=== PATIENT | male | born 1970 | race Caucasian/White ===

== ENCOUNTER 2022-07-23 12:03 | Emergency (ER) | payer OTHER, SELFPAY ==
[2022-07-23 12:07] VITALS: BP 174/77; PULSE 88; RESP 16; TEMP 36.6; O2SAT 99; BMI 35.4
--- NOTE | 2022-07-23 12:29 | CTR_ITS ---
PROCEDURE INFORMATION: Exam: CT Head Without Contrast Exam date and time: 07/23/2022 12:54 PM Age: 51 years old Clinical indication: Weakness, extremity; Right; Additional info: Right arm weakness TECHNIQUE: Imaging protocol: Computed tomography of the head without contrast. Radiation optimization: All CT scans at this facility use at least one of these dose optimization techniques: automated exposure control; mA and/or kV adjustment per patient size (includes targeted exams where dose is matched to clinical indication); or iterative reconstruction. COMPARISON: No relevant prior studies available. RADIATION DOSE METRICS: Total DLP (mGy-cm): 249.2 FINDINGS: Brain: Normal. No hemorrhage. Unremarkable white matter. No mass effect. Cerebral ventricles: No ventriculomegaly. Paranasal sinuses: Visualized sinuses are unremarkable. No fluid levels. Mastoid air cells: Visualized mastoid air cells are well aerated. Bones/joints: Unremarkable. No acute fracture. Soft tissues: Unremarkable. CT/CT head wo con* [id number] IMPRESSION: No acute intracranial abnormality.
--- NOTE | 2022-07-23 12:29 | CTR_ITS ---
PROCEDURE INFORMATION: Exam: CT Cervical Spine Without Contrast Exam date and time: 07/23/2022 12:54 PM Age: 51 years old Clinical indication: Other: Right arm pain, numbness; Additional info: Right arm pain, numbness and weakness TECHNIQUE: Imaging protocol: Computed tomography of the cervical spine without contrast. Radiation optimization: All CT scans at this facility use at least one of these dose optimization techniques: automated exposure control; mA and/or kV adjustment per patient size (includes targeted exams where dose is matched to clinical indication); or iterative reconstruction. COMPARISON: MR shoulder LT wo con* [id number] 04/17/2016 1:52 PM RADIATION DOSE METRICS: Total DLP (mGy-cm): 249.2 FINDINGS: Bones/joints: No acute fracture. Normal alignment. No significant disc protrusion. No severe spinal canal stenosis. There is mild degenerative changes, manifested by intervertebral disc space narrowing, endplate osteophytes and facet joint arthrosis. Lungs: Lung apices are normal. Soft tissues: Unremarkable. CT/CT cervical spin wo con* [id number] IMPRESSION: No acute findings.
--- NOTE | 2022-07-23 12:29 | XRR_ITS ---
PROCEDURE INFORMATION: Exam: XR Right Shoulder Exam date and time: 07/23/2022 12:51 PM Age: 51 years old Clinical indication: Pain; Shoulder; Right; Additional info: Right shoulder pain TECHNIQUE: Imaging protocol: Radiologic exam of the Right shoulder. Views: 2 or more views. COMPARISON: No relevant prior studies available. FINDINGS: Bones/joints: No acute fracture or dislocation. There is deficiency/absence of the distal/lateral right clavicle, which may be postoperative in nature. Soft tissues: Normal. XR/XR shoulder RT min 2V* [id number] IMPRESSION: 1. No acute injury. 2. Deficiency/absence of the distal/lateral right clavicle, which may be postoperative in nature. Clinical correlation is recommended.
--- NOTE | 2022-07-23 12:29 | W.ED.NECK ---
HPI - Neck Pain/Injury General: Chief Complaint: Neck Pain/Injury Stated Complaint: right shoulder is in pain Time Seen by Provider: 07/23/22 12:23 History of Present Illness: Patient is a 51-year-old male comes to the ED with right arm weakness and pain. Patient says symptoms started approximately 4 days ago when he developed an aching pain in his right upper arm and shoulder. Pain then progressed up into right upper back and into neck. Pain is currently a 9 out of 10. Pain radiates down into his whole right arm. He is also on having some numbness/tingling in his right hand. Numbness and tingling is located on fourth and fifth digits of the right hand. Endorses weakness in his right arm. Denies any headache, vision changes, numbness or tingling to other part of his body or face or any weakness to face. Associated symptoms: Denies headache(s) or nausea Review of Systems Const: Denies: fever(s), chills or fatigue Eyes: Denies: change in vision or eye discomfort ENMT: Denies: throat pain, odynophagia, nasal discharge or nasal congestion Card: Denies: chest pain, palpitations, edema, swelling of feet/ankles, dyspnea on exertion or orthopnea Resp: Denies: dyspnea, productive cough or non-productive cough GI: Denies: abdominal pain, nausea, vomiting, diarrhea, constipation or hematochezia : Denies: flank pain, difficulty urinating, dysuria or hematuria Musc: Reports: neck pain and extremity pain (Right arm and right shoulder); Denies: back pain or extremity swelling Skin/Breast: Denies: rash or new lesions Neuro: Reports: numbness in extremities (Right hand) and weakness in extremities (Right arm); Denies: headache(s) [facility] ED PFSH: Medical History No pertinent family history Surgical History History of shoulder surgery BILATERAL Family History Mother Hypertension Social History Smoking and tobacco status: former smoker Alcohol intake: never Caregiver/support person: No Lives independently: No Household members: spouse Marital status: Current occupational status: employed History of recent travel: No Current gender identity: Male Physical Exam Const: COMMON NORMALS: no acute distress, patient oriented x3, healthy appearing and alert GENERAL APPEARANCE: cooperative and comfortable HENMT: COMMON NORMALS: normocephalic HEAD & SCALP: normocephalic MOUTH: Normal oral and palatal mucosa present THROAT: posterior oropharynx normal and uvula midline Eye: COMMON NORMALS: Equal, round and reactive pupils present and EOMs intact bilaterally GENERAL EYE: appearance normal, both eyes and all related structures PUPIL: Yes Equal, round and reactive pupils present Neck/C-Spine: COMMON NORMALS: supple GENERAL: Yes normal visual inspection Lymph: LYMPHATIC: no lymphadenopathy noted Resp: COMMON NORMALS: normal respiratory effort, No retractions, No use of accessory muscles and clear to auscultation bilaterally AUSCULTATION: clear to auscultation bilaterally Cardio: COMMON NORMALS: regular rate, regular rhythm, S1 normal heart sound present, S2 normal heart sound present, No gallops present (Cardio), No clicks present (Cardio), No murmurs present (Cardio) and Peripheral pulses 2+ throughout RATE: regular rate RHYTHM: regular rhythm HEART SOUNDS: S1 normal heart sound present and S2 normal heart sound present PERIPHERAL PULSES: Peripheral pulses 2+ throughout GI: COMMON NORMALS: Normal to inspection, nondistended, normoactive bowel sounds present, Soft to palpation, non-tender and no masses PALPATION: Yes Soft to palpation : COMMON NORMALS: Yes no CVA tenderness BLADDER/KIDNEY EXAM: Yes no CVA tenderness Back/Pelvis: COMMON NORMALS: no CVA tenderness Extremity: GENERAL: Yes normal exam except as noted RIGHT UPPER EXTREMITY: Yes wrist Right wrist: Yes special tests Right wrist special tests: Phalen's test: Positive Neuro: COMMON NORMALS: patient oriented x3, CN's II-XII intact bilaterally, moves all extremities, no focal motor deficits and no sensory deficits noted SENSORIUM/ORIENTATION: Yes alert SENSORY EXAM: Yes extremities (intact) MOTOR EXAM: 5/5 motor strength present throughout Skin: COMMON NORMALS: no rashes or lesions noted GENERAL SKIN EXAM: no rashes or lesions noted and dry skin Course Vital Signs: Vital signs: Vital Signs Temperature 97.9 F 07/23/22 12:07 Pulse Rate 88 07/23/22 12:07 Respiratory Rate 16 07/23/22 12:44 Blood Pressure 174/77 07/23/22 12:07 Pulse Oximetry 99 07/23/22 12:07 MDM - Neck Pain/Injury Medical Decision Making Patient is a 51-year-old male comes to the ED with right arm weakness and pain. Patient says symptoms started approximately 4 days ago when he developed an aching pain in his right upper arm and shoulder. Pain then progressed up into right upper back and into neck. Pain is currently a 9 out of 10. Pain radiates down into his whole right arm. He is also on having some numbness/tingling in his right hand-fourth and fifth digit. Vitals are stable. Neuro exam shows no deficits. Patient did have a positive Phalen's test of the right wrist suggestive of carpal tunnel syndrome. Rest of exam was benign. CT of cervical spine and head CT showed no acute findings. 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 Patient was diagnosed with right shoulder pain and acute carpal tunnel syndrome of right wrist. I placed an order with case management for patient to be referred to Ortho?Dr. Gifford since he is seen her in the past. Patient discharged home with a sling, prescription for ibuprofen 800 mg since steroids. Told to follow-up with PCP within the next week for reevaluation. Return to ED precautions given. Patient understood and agreed with plan. Lab Data Radiology Impressions Cervical Spine CT 07/23/22 12:29 IMPRESSION: No acute findings. Head CT 07/23/22 12:29 IMPRESSION: No acute intracranial abnormality. Shoulder X-Ray 07/23/22 12:29 IMPRESSION: 1. No acute injury. 2. Deficiency/absence of the distal/lateral right clavicle, which may be postoperative in nature. Clinical correlation is recommended. Discharge Plan Discharge Patient Disposition: Home Clinical Impression: Acute carpal tunnel syndrome of right wrist Pain in right shoulder Qualifiers: Chronicity: acute Qualified Code(s): M25.511 - Pain in right shoulder Condition: Stable Prescriptions: New ibuprofen 800 mg tablet 800 mg PO Q8H PRN (Reason: pain) Qty: 30 0RF prednisone 20 mg tablet 20 mg PO BID 5 Days Qty: 10 0RF Discharge Orders: Discharge ED (Routine); Ordered 07/23/22 Ordered By: Cecil Spencer Discharge Diet: Regular Discharge Activity: Increase activity as tolerated Patient Instructions: Carpal Tunnel Syndrome (DC), Shoulder Pain (ED) Activity Restrictions/Additional Instructions: Follow-up with medical provider as directed. Case management should contact you in the next several days set up an appointment with Ortho for follow-up on carpal tunnel and right shoulder pain. Take medications as prescribed. Return to the ER or your medical provider if condition worsens. Please read and understand discharge instructions. Thank you for choosing [facility] for your healthcare needs today. Please realize this is an emergency room and that we are providing you with a medical screening exam and this may not be complete and all inclusive of all the testing and or work up that you may need to determine your ailment or severity of your illness. It is very important that you follow up as instructed or that you return to the Emergency Department should you have concerns or if your condition changes or worsens in any way. Stand Alone Forms: Work/School Release Coding Level of Care Code ED Claim Attorney for [employer] Exam Comprehensive
[2022-07-23 12:44] VITALS: RESP 16
[2022-07-23] MEDS: morphine 4 mg/mL SDV 1 mL IM (12:44)
--- NOTE | 2022-07-23 14:21 | DCPLANNER ---
Addendum entered by Vanessa Saha 10/08/22 11:08: Patient had a follow up appointment scheduled with ortho - patient did attend appointment Addendum entered by Vanessa Saha 07/25/22 13:09: Patient has a follow up appointment scheduled for Thursday, July 30, 2022 at 8:[address] Gifford at ortho. Clinic will call patient with appointment information. Original Note: transitional care manager had message to schedule a follow up appointment for patient with ortho. transitional care manager sent patients information to the front office staff at ortho. Patients information will be printed and reviewed. Clinic will call patient with appointment information.
== END 2022-07-23 14:17 | disposition home or self-care (01) ==
PROVIDERS: Emergency Provider Physician Assistant
DX: M25.511 Pain in right shoulder (principal); G56.01 Carpal tunnel syndrome, right upper limb; Z87.891 Personal history of nicotine dependence
CPT/HCPCS: 70450; 72125; 73030; 96372; 99284; J2270

== ENCOUNTER 2022-07-29 12:30 | Inpatient (IN) | payer OTHER, SELFPAY ==
[2022-07-29] VITALS (76 sets, daily range): BP systolic 118–159; BP diastolic 60–99; PULSE 62–97; RESP 9–28; TEMP 36.8–37; O2SAT 95–99; BMI 36.5
[2022-07-29 12:55] LABS: Glucose Point of Care > 600 mg/dL (70-110)
--- NOTE | 2022-07-29 13:06 | W.ED.GENADLT ---
Documented by User: JENNIFER Guardado 07/29/22 15:58 HPI - General Adult General: Chief complaint: General Medical Stated complaint: Full body tingles, vision problems, stumbling Time Seen by Provider: 07/29/22 12:45 History of Present Illness: Patient is a 51-year-old male comes to the ED with multiple complaints. Today he woke up feeling lightheaded, blurry vision and off-balance. He states he has been stumbling/off balance when walking around today. Patient also endorses feeling some tingling sensation all throughout his body. Approximately 2 to 3 days ago he started having dry mouth excessive thirst and increased urination. Patient states that he has been told before that he was a prediabetic but is not on any diabetic medications or insulin. Patient was recently on a course of steroids that he just finished taking yesterday. Denies any fever, chills, abdominal pain, chest pain, shortness of breath, nausea/vomiting or bowel symptoms. Associated symptoms: Deny chest pain, dyspnea, headache(s), nausea, rash, palpitations or vomiting Review of Systems Const: Denies: fever(s), chills or fatigue Eyes: Reports: blurry vision; Denies: change in vision or eye discomfort ENMT: Denies: throat pain, odynophagia, nasal discharge or nasal congestion Card: Denies: chest pain, palpitations, edema, swelling of feet/ankles, dyspnea on exertion or orthopnea Resp: Denies: dyspnea, productive cough or non-productive cough GI: Denies: abdominal pain, nausea, vomiting, diarrhea, constipation or hematochezia : Reports: urinary frequency (Increased); Denies: flank pain, difficulty urinating, dysuria or hematuria Musc: Denies: neck pain, back pain or extremity swelling Skin/Breast: Denies: rash or new lesions Neuro: Denies: headache(s), numbness in extremities or weakness in extremities Endo: Reports: polyuria and polydipsia PFS ED PFSH: Medical History No pertinent family history Surgical History History of shoulder surgery BILATERAL Family History Mother Hypertension Social History Smoking and tobacco status: former smoker Alcohol intake: never Caregiver/support person: No Lives independently: No Household members: spouse Marital status: Current occupational status: employed History of recent travel: No Current gender identity: Male Physical Exam Const: COMMON NORMALS: patient oriented x3 and alert GENERAL APPEARANCE: cooperative HENMT: COMMON NORMALS: normocephalic HEAD & SCALP: normocephalic MOUTH: Normal oral and palatal mucosa present THROAT: posterior oropharynx normal and uvula midline Eye: COMMON NORMALS: Equal, round and reactive pupils present and conjunctivae normal CONJUNCTIVA: Yes conjunctivae normal PUPIL: Yes Equal, round and reactive pupils present Neck/C-Spine: COMMON NORMALS: supple GENERAL: Yes normal visual inspection Resp: COMMON NORMALS: normal respiratory effort, No retractions, No use of accessory muscles and clear to auscultation bilaterally AUSCULTATION: clear to auscultation bilaterally Cardio: COMMON NORMALS: regular rate, regular rhythm, S1 normal heart sound present, S2 normal heart sound present, No gallops present (Cardio), No clicks present (Cardio), No murmurs present (Cardio) and Peripheral pulses 2+ throughout RATE: regular rate RHYTHM: regular rhythm HEART SOUNDS: S1 normal heart sound present and S2 normal heart sound present PERIPHERAL PULSES: Peripheral pulses 2+ throughout GI: COMMON NORMALS: Normal to inspection, nondistended, normoactive bowel sounds present, Soft to palpation, non-tender and no masses PALPATION: Yes Soft to palpation : COMMON NORMALS: Yes no CVA tenderness BLADDER/KIDNEY EXAM: Yes no CVA tenderness Back/Pelvis: COMMON NORMALS: no CVA tenderness Extremity: COMMON NORMALS: normal to inspection Neuro: COMMON NORMALS: patient oriented x3 SENSORIUM/ORIENTATION: Yes alert GAIT: Yes Normal gait present Skin: GENERAL SKIN EXAM: dry skin Course Vital Signs: Vital signs: Vital Signs Temperature 98.2 F 07/29/22 12:33 Pulse Rate 77 07/29/22 14:41 Respiratory Rate 18 07/29/22 14:41 Blood Pressure 144/77 07/29/22 14:41 Pulse Oximetry 98 07/29/22 14:41 Oxygen Delivery Me thod 07/29/22 14:41 [facility] - General Adult Lab Data : 07/29/22 13:15 07/29/22 13:15 Radiology Impressions Chest X-Ray 07/29/22 13:12 IMPRESSION: No acute finding. Laboratory Results WBC 11.3 10^3/uL (4.0-10.0) H 07/29/22 13:15 RBC 5.39 10^6/uL (4.1-5.3) H 07/29/22 13:15 Hgb 16.3 g/dL (11.7-16.6) 07/29/22 13:15 Hct 47.8 % (42.0-52.0) 07/29/22 13:15 MCV 88.7 fl (80-94) 07/29/22 13:15 MCH 30.2 pg (28.0-34.0) 07/29/22 13:15 MCHC 34.1 g/dL (30.0-36.0) 07/29/22 13:15 RDW 11.8 % (12.1-15.1) L 07/29/22 13:15 Plt Count 289 10^3/cmm (130-400) 07/29/22 13:15 MPV 11.2 fL (7.4-10.4) H 07/29/22 13:15 Neut % (Auto) 69.3 % 07/29/22 13:15 Lymph % (Auto) 23.2 % 07/29/22 13:15 [place] % (Auto) 6.5 % 07/29/22 13:15 Eos % (Auto) 0.3 % 07/29/22 13:15 Baso % (Auto) 0.3 % 07/29/22 13:15 Neut # (Auto) 7.86 10^3/uL (1.8-7.7) H 07/29/22 13:15 Lymph # (Auto) 2.6 10^3/uL (0.8-4.8) 07/29/22 13:15 [place] # (Auto) 0.7 10^3/uL (0.2-0.9) 07/29/22 13:15 Eos # (Auto) 0.0 10^3/uL (0.0-0.8) 07/29/22 13:15 Baso # (Auto) 0.0 10^3/uL (0.0-0.1) 07/29/22 13:15 Nucleated RBC % (auto) 0 % 07/29/22 13:15 Nucleated RBCs # 0.0 /100WBC 07/29/22 13:15 Specimen Type Arterial 07/29/22 13:28 Sample Site Radial, left 07/29/22 13:28 ABG pH 7.39 (7.35-7.45) 07/29/22 13:28 ABG pCO2 28.1 mmHg (35-45) L 07/29/22 13:28 ABG pO2 85.3 mmHg (80.0-100.0) 07/29/22 13:28 ABG HCO3 16.9 mmol/L (22-26) L 07/29/22 13:28 ABG O2 Saturation 97.5 07/29/22 13:28 ABG Base Excess -6.3 mmol/L (-2.0-2.0) L 07/29/22 13:28 Ian Test Pos 07/29/22 13:28 A-a O2 Gradient 3.8 mmHg (5-10) L 07/29/22 13:28 Hematocrit 49.9 % (42-52) 07/29/22 13:28 Hgb O2 Saturation 95.9 % (95-100) 07/29/22 13:28 Carboxyhemoglobin 1.4 %THgb (0.4-20.1) 07/29/22 13:28 Methemoglobin 0.2 % (0.4-1.5) L 07/29/22 13:28 Total Hemoglobin 16.3 g/dL (14-18) 07/29/22 13:28 Sodium 124.0 mmol/L (131-143) L 07/29/22 13:28 Potassium 4.0 mmol/L (3.5-5.0) 07/29/22 13:28 Glucose 605.0 mg/dL (70-115) H 07/29/22 13:28 Ionized Calcium 1.1 mmol/L (1.1-1.4) 07/29/22 13:28 O2 Delivery Device Room air 07/29/22 13:28 FiO2 21.0 % 07/29/22 13:28 Hand Salter ID Cak 07/29/22 13:28 Sodium 120 mmol/L (136-145) L 07/29/22 13:15 Potassium 4.4 mmol/L (3.5-5.1) 07/29/22 13:15 Chloride 79 mmol/L (98-107) L 07/29/22 13:15 Carbon Dioxide 19 mmol/L (22-29) L 07/29/22 13:15 Anion Gap 26.4 (5-19) H 07/29/22 13:15 BUN 34 mg/dL (6-20) H 07/29/22 13:15 Creatinine 1.4 mg/dL (0.7-1.2) H 07/29/22 13:15 GFR Calculation 53.9 mL/min (90-130) L 07/29/22 13:15 Glucose 645 mg/dL (65-115) H* 07/29/22 13:15 POC Glucose > 600 mg/dL (70-110) H* 07/29/22 14:26 Calculated Osmolality 288 mOsm/kg (285-295) 07/29/22 13:15 Lactic Acid 2.1 mmol/L (0.5-2.2) 07/29/22 13:15 Calcium 8.9 mg/dL (8.5-10.5) 07/29/22 13:15 Total Bilirubin 0.8 mg/dL (0.15-1.2) 07/29/22 13:15 AST 40 U/L (0-40) 07/29/22 13:15 ALT 54 U/L (0-41) H 07/29/22 13:15 Alkaline Phosphatase 106 U/L (40-130) 07/29/22 13:15 Total Protein 7.6 g/dL (6.6-8.7) 07/29/22 13:15 Albumin 4.4 g/dL (3.5-5.2) 07/29/22 13:15 Globulin 3.2 g/dL (1.3-4.6) 07/29/22 13:15 Urine Color Yellow (Yellow) 07/29/22 13:15 Urine Appearance Clear (CLEAR) 07/29/22 13:15 Urine pH 5 (5-7) 07/29/22 13:[address] 1.010 (1.005-1.030) 07/29/22 13:15 Urine Protein Neg (Negative) 07/29/22 13:15 Urine Glucose (UA) 4+ (Normal) H 07/29/22 13:15 Urine Ketones 2+ (Negative) H 07/29/22 13:15 Urine Blood 2+ (Negative) H 07/29/22 13:15 Urine Nitrate Negative (Negative) 07/29/22 13:15 Urine Bilirubin Neg (Negative) 07/29/22 13:15 Urine Urobilinogen Norm mg/dL (Negative) 07/29/22 13:15 Ur Leukocyte Esterase Negative (Negative) 07/29/22 13:15 Urine RBC 0-4 /hpf (0-2) H 07/29/22 13:15 Urine WBC 0-4 /hpf (0-5) H 07/29/22 13:15 Ur Squamous Epith Cells 0-4 /hpf (0-5) H 07/29/22 13:15 Amorphous Sediment Not Reportable 07/29/22 13:15 Urine Bacteria Trace /hpf (NONE) 07/29/22 13:15 Urine Yeast Trace /hpf 07/29/22 13:15 Serum Ketones Positive (Negative) H 07/29/22 13:15 Discharge Plan Discharge Patient Disposition: Admitted As Inpatient Clinical Impression: DKA (diabetic ketoacidosis) Condition: Stable Sign Out Sign Out Data: Patient Sign Out occurred on 07/29/22 at 14:34. Patient's care was discussed, and care was transferred from to Patrice Cuellar DO. Coding Level of Care Code ED Field Artillery Operations Man for Chg Fwd Exam Comprehensive Documented by User: Patrice Cuellar DO 07/29/22 15:48 HPI - General Adult General: Chief complaint: General Medical Stated complaint: Full body tingles, vision problems, stumbling Time Seen by Provider: 07/29/22 12:45 PFSH ED PFSH: Medical History No pertinent family history Surgical History History of shoulder surgery BILATERAL Family History Mother Hypertension Social History Smoking and tobacco status: former smoker Alcohol intake: never Caregiver/support person: No Lives independently: No Household members: spouse Marital status: Current occupational status: employed History of recent travel: No Current gender identity: Male Course Vital Signs: Vital signs: Vital Signs Temperature 98.2 F 07/29/22 12:33 Pulse Rate 77 07/29/22 14:41 Respiratory Rate 18 07/29/22 14:41 Blood Pressure 144/77 07/29/22 14:41 Pulse Oximetry 98 07/29/22 14:41 Oxygen Delivery Me thod 07/29/22 14:41 MDM - General Adult Medical Decision Making Care assumed from midlevel. Patient is in DKA. He had been known to have impaired glucose tolerance was recently started on prednisone for an orthopedic complaint. He has not been able to eat or drink the last few days has had polyuria polydipsia. Presents here with ketones glucose greater than 600 normal pH but a significant anion gap will admit for early DKA has been given fluids potassium supplement is started he was given initial insulin bolus and started on insulin drip. Medical Records I reviewed the patient's medical records. Lab Data I reviewed the patient's lab results. : 07/29/22 13:15 07/29/22 13:15 Radiology Impressions Chest X-Ray 07/29/22 13:12 IMPRESSION: No acute finding. Laboratory Results WBC 11.3 10^3/uL (4.0-10.0) H 07/29/22 13:15 RBC 5.39 10^6/uL (4.1-5.3) H 07/29/22 13:15 Hgb 16.3 g/dL (11.7-16.6) 07/29/22 13:15 Hct 47.8 % (42.0-52.0) 07/29/22 13:15 MCV 88.7 fl (80-94) 07/29/22 13:15 MCH 30.2 pg (28.0-34.0) 07/29/22 13:15 MCHC 34.1 g/dL (30.0-36.0) 07/29/22 13:15 RDW 11.8 % (12.1-15.1) L 07/29/22 13:15 Plt Count 289 10^3/cmm (130-400) 07/29/22 13:15 MPV 11.2 fL (7.4-10.4) H 07/29/22 13:15 Neut % (Auto) 69.3 % 07/29/22 13:15 Lymph % (Auto) 23.2 % 07/29/22 13:15 [place] % (Auto) 6.5 % 07/29/22 13:15 Eos % (Auto) 0.3 % 07/29/22 13:15 Baso % (Auto) 0.3 % 07/29/22 13:15 Neut # (Auto) 7.86 10^3/uL (1.8-7.7) H 07/29/22 13:15 Lymph # (Auto) 2.6 10^3/uL (0.8-4.8) 07/29/22 13:15 [place] # (Auto) 0.7 10^3/uL (0.2-0.9) 07/29/22 13:15 Eos # (Auto) 0.0 10^3/uL (0.0-0.8) 07/29/22 13:15 Baso # (Auto) 0.0 10^3/uL (0.0-0.1) 07/29/22 13:15 Nucleated RBC % (auto) 0 % 07/29/22 13:15 Nucleated RBCs # 0.0 /100WBC 07/29/22 13:15 Specimen Type Arterial 07/29/22 13:28 Sample Site Radial, left 07/29/22 13:28 ABG pH 7.39 (7.35-7.45) 07/29/22 13:28 ABG pCO2 28.1 mmHg (35-45) L 07/29/22 13:28 ABG pO2 85.3 mmHg (80.0-100.0) 07/29/22 13:28 ABG HCO3 16.9 mmol/L (22-26) L 07/29/22 13:28 ABG O2 Saturation 97.5 07/29/22 13:28 ABG Base Excess -6.3 mmol/L (-2.0-2.0) L 07/29/22 13:28 Ian Test Pos 07/29/22 13:28 A-a O2 Gradient 3.8 mmHg (5-10) L 07/29/22 13:28 Hematocrit 49.9 % (42-52) 07/29/22 13:28 Hgb O2 Saturation 95.9 % (95-100) 07/29/22 13:28 Carboxyhemoglobin 1.4 %THgb (0.4-20.1) 07/29/22 13:28 Methemoglobin 0.2 % (0.4-1.5) L 07/29/22 13:28 Total Hemoglobin 16.3 g/dL (14-18) 07/29/22 13:28 Sodium 124.0 mmol/L (131-143) L 07/29/22 13:28 Potassium 4.0 mmol/L (3.5-5.0) 07/29/22 13:28 Glucose 605.0 mg/dL (70-115) H 07/29/22 13:28 Ionized Calcium 1.1 mmol/L (1.1-1.4) 07/29/22 13:28 O2 Delivery Device Room air 07/29/22 13:28 FiO2 21.0 % 07/29/22 13:28 Hand Salter ID Cak 07/29/22 13:28 Sodium 120 mmol/L (136-145) L 07/29/22 13:15 Potassium 4.4 mmol/L (3.5-5.1) 07/29/22 13:15 Chloride 79 mmol/L (98-107) L 07/29/22 13:15 Carbon Dioxide 19 mmol/L (22-29) L 07/29/22 13:15 Anion Gap 26.4 (5-19) H 07/29/22 13:15 BUN 34 mg/dL (6-20) H 07/29/22 13:15 Creatinine 1.4 mg/dL (0.7-1.2) H 07/29/22 13:15 GFR Calculation 53.9 mL/min (90-130) L 07/29/22 13:15 Glucose 645 mg/dL (65-115) H* 07/29/22 13:15 POC Glucose > 600 mg/dL (70-110) H* 07/29/22 14:26 Calculated Osmolality 288 mOsm/kg (285-295) 07/29/22 13:15 Lactic Acid 2.1 mmol/L (0.5-2.2) 07/29/22 13:15 Calcium 8.9 mg/dL (8.5-10.5) 07/29/22 13:15 Total Bilirubin 0.8 mg/dL (0.15-1.2) 07/29/22 13:15 AST 40 U/L (0-40) 07/29/22 13:15 ALT 54 U/L (0-41) H 07/29/22 13:15 Alkaline Phosphatase 106 U/L (40-130) 07/29/22 13:15 Total Protein 7.6 g/dL (6.6-8.7) 07/29/22 13:15 Albumin 4.4 g/dL (3.5-5.2) 07/29/22 13:15 Globulin 3.2 g/dL (1.3-4.6) 07/29/22 13:15 Urine Color Yellow (Yellow) 07/29/22 13:15 Urine Appearance Clear (CLEAR) 07/29/22 13:15 Urine pH 5 (5-7) 07/29/22 13:[address] 1.010 (1.005-1.030) 07/29/22 13:15 Urine Protein Neg (Negative) 07/29/22 13:15 Urine Glucose (UA) 4+ (Normal) H 07/29/22 13:15 Urine Ketones 2+ (Negative) H 07/29/22 13:15 Urine Blood 2+ (Negative) H 07/29/22 13:15 Urine Nitrate Negative (Negative) 07/29/22 13:15 Urine Bilirubin Neg (Negative) 07/29/22 13:15 Urine Urobilinogen Norm mg/dL (Negative) 07/29/22 13:15 Ur Leukocyte Esterase Negative (Negative) 07/29/22 13:15 Urine RBC 0-4 /hpf (0-2) H 07/29/22 13:15 Urine WBC 0-4 /hpf (0-5) H 07/29/22 13:15 Ur Squamous Epith Cells 0-4 /hpf (0-5) H 07/29/22 13:15 Amorphous Sediment Not Reportable 07/29/22 13:15 Urine Bacteria Trace /hpf (NONE) 07/29/22 13:15 Urine Yeast Trace /hpf 07/29/22 13:15 Serum Ketones Positive (Negative) H 07/29/22 13:15 Discharge Plan Discharge Patient Disposition: Admitted As Inpatient Clinical Impression: DKA (diabetic ketoacidosis) Condition: Stable Sign Out Sign Out Data: Patient Sign Out occurred on 07/29/22 at 14:34. Patient's care was discussed, and care was transferred from to Patrice Cuellar DO. Coding Level of Care Code ED Field Artillery Operations Man for Nadia Fwd Exam Comprehensive
--- NOTE | 2022-07-29 13:12 | XRR_ITS ---
PROCEDURE INFORMATION: Exam: XR Chest Exam date and time: 07/29/2022 1:19 PM Age: 51 years old Clinical indication: Lightheaded TECHNIQUE: Imaging protocol: Radiologic exam of the chest. Views: 1 view. COMPARISON: No relevant prior studies available. FINDINGS: Lungs: No pneumonia or pulmonary edema. Pleural spaces: No pleural effusion or pneumothorax. Heart/Mediastinum: The cardiac silhouette is not enlarged. The mediastinal contours are normal. Bones/joints: No acute osseous abnormality. XR/XR chest 1V portable [id number] IMPRESSION: No acute finding.
[2022-07-29 13:26] LABS: Basophils % 0.3 %; Eosinophils % 0.3 %; Hematocrit 47.8 % (42.0-52.0); Hemoglobin 16.3 g/dL (11.7-16.6); Lymphocytes # 2.6 10^3/uL (0.8-4.8); Lymphocytes % 23.2 %; Mean Corpuscular HGB Conc 34.1 g/dL (30.0-36.0); Mean Corpuscular Hemoglobin 30.2 pg (28.0-34.0); Mean Corpuscular Volume 88.7 fl (80-94); Mean Platelet Volume 11.2 fL (7.4-10.4); Monocytes # 0.7 10^3/uL (0.2-0.9); Monocytes % 6.5 %; Neutrophils # 7.86 10^3/uL (1.8-7.7); Neutrophils % 69.3 %; Nucleated Red Blood Cells % 0 %; Platelet Count 289 10^3/cmm (130-400); Red Blood Count 5.39 10^6/uL (4.1-5.3); Red Cell Distribution Width 11.8 % (12.1-15.1); White Blood Count 11.3 10^3/uL (4.0-10.0)
[2022-07-29] MEDS: insulin regular-human 100 units/1 mL 10 UNIT IVP (13:26)
--- NOTE | 2022-07-29 13:28 | ECG_ITS ---
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 Measurements Intervals [place] Rate: 87 P: 33 SD: 159 QRS: 1 QRSD: 96 T: 47 QT: 371 QTc: 446 Interpretive Statements SINUS RHYTHM POSSIBLE LEFT ATRIAL ENLARGEMENT [-0.1mV P-WAVE IN V1/V2] No previous ECG available for comparison Electronically Signed On 07-30-2022 8:26:25 CDT by Eyad Moore M.D. [id number]
[2022-07-29] MEDS: sodium chloride 0.9% 1,000 ML 999 ML IV (13:32)
[2022-07-29 13:39] LABS: ABG PCO2 28.1 mmHg (35-45); ABG PH Result 7.39 (7.35-7.45); Alveolar-Arterial Oxygen Gradi 3.8 mmHg (5-10); Arterial Blood Gas Hematocrit 49.9 % (42-52); Base Excess ABG -6.3 mmol/L (-2.0-2.0); Blood Gas Allen Test Pos; Blood Gas Operator Identificat CAK; Blood Gas Sample Site Radial, left; Blood Gas Sample Type Arterial; Carboxyhemoglobin 1.4 %THgb (0.4-20.1); HCO3 ABG 16.9 mmol/L (22-26); HGB O2 Sat 95.9 % (95-100); Ionized Calcium Level - ABG 1.1 mmol/L (1.1-1.4); Methemoglobin 0.2 % (0.4-1.5); Oxygen Device ROOM AIR; Oxygen Saturation ABG 97.5; PO2 ABG 85.3 mmHg (80.0-100.0); Total Hemoglobin 16.3 g/dL (14-18)
[2022-07-29 13:44] LABS: Add Urine Culture? Yes; Add Urine Microscopic? YES; Bacteria Urine TRACE /hpf; Bilirubin Urine Neg (Negative); Blood Urine 2+ (Negative); Glucose Urine UA 4+ (Normal); Ketones Urine 2+ (Negative); Leukocyte Esterase Urine Negative (Negative); Nitrate Urine Negative (Negative); Protein Urine Neg (Negative); RBC Urine 0-4 /hpf (0-2); Squamous Epithelial Cell Urine 0-4 /hpf (0-5); Urine Appearance Clear (CLEAR); Urine Color Yellow (Yellow); Urobilinogen Urine Norm (Negative); WBC Urine 0-4 /hpf (0-5); pH Urine 5 (5-7)
[2022-07-29 13:53] LABS: Alanine Aminotransferase 54 U/L (0-41); Albumin Level 4.4 g/dL (3.5-5.2); Alkaline Phosphatase 106 U/L (40-130); Aspartate Amino Transferase 40 U/L (0-40); Blood Urea Nitrogen 34 mg/dL (6-20); Calcium 8.9 mg/dL (8.5-10.5); Carbon Dioxide 19 mmol/L (22-29); Chloride 79 mmol/L (98-107); Globulin 3.2 g/dL (1.3-4.6); Glomerular Filtration Rate 53.9 mL/min (90-130); Osmolality Calculated 288 mOsm/kg (285-295); Sodium 120 mmol/L (136-145); Total Bilirubin 0.8 mg/dL (0.15-1.2); Total Protein 7.6 g/dL (6.6-8.7)
[2022-07-29 13:57] LABS: Anion Gap 26.4 (5-19); Glucose 645 mg/dL (65-115); Potassium 4.4 mmol/L (3.5-5.1)
[2022-07-29 14:02] LABS: Lactic Sepsis W/Reflex 2.1 mmol/L (0.5-2.2)
[2022-07-29 14:10] LABS: Ketone (Acetest) Serum Positive (Negative)
[2022-07-29] MEDS: sodium chloride 0.9% 2,000 ML 999 ML IV (14:27)
[2022-07-29 14:29] LABS: Glucose Point of Care > 600 mg/dL (70-110)
[2022-07-29 15:11] LABS: Reflex Lactate Order REFLEX LACTIC ORDERD
--- NOTE | 2022-07-29 15:20 | PC.NURSE ---
Target low glucose 90, target high glucose [address] Borrego verbal orders.
[2022-07-29] MEDS: insulin regular-human 250 UNIT in sodium chloride 0.9% 250 ML 17.55 UNIT IV (15:39)
--- NOTE | 2022-07-29 16:05 | P.HP_ITS ---
Providers/Chief Complaint Chief Complaint: Full body tingles, vision problems, stumbling History of Present Illness Damian Ball is a 51 year old male Medications/Allergies Home Medications Medication Instructions Recorded Confirmed Last Taken Type ibuprofen 800 mg tablet 800 mg PO Q8H PRN pain #30 tabs 07/23/22 07/29/22 07/29/22 05:00 Rx gabapentin 600 mg tablet 600 mg PO BID 07/29/22 07/29/22 2 Weeks Ago History ~07/15/22 levocetirizine 5 mg tablet (Xyzal) 5 mg PO BEDTIME 07/29/22 07/29/22 07/28/22 History naproxen 500 mg tablet 500 mg PO BID PRN Pain 07/29/22 07/29/22 Unknown History omeprazole magnesium 20 mg 20 mg PO BEDTIME 07/29/22 07/29/22 07/28/22 History tablet,delayed release (Prilosec OTC) prednisone 20 mg tablet 20 mg PO BID 07/29/22 07/29/22 07/28/22 History finished tramadol 50 mg tablet (Ultram) 50 mg PO BID 07/29/22 07/29/22 07/29/22 History Allergies Allergy/AdvReac Type Severity Reaction Status Date / Time amoxicillin Allergy Unknown Unknown Verified 07/29/22 13:38 PFSH Acute PFSH: Medical History No pertinent family history Surgical History History of shoulder surgery BILATERAL Family History Mother Hypertension Social History Smoking and tobacco status: former smoker Alcohol intake: never Caregiver/support person: No Lives independently: No Household members: spouse Marital status: Current occupational status: employed History of recent travel: No Current gender identity: Male Vitals/I&O/Wt Last Vital Signs Temp 98.2 F 07/29/22 12:33 Pulse 77 07/29/22 14:41 Resp 18 07/29/22 14:41 BP 144/77 07/29/22 14:41 Pulse Ox 98 07/29/22 14:41 O2 Del Method 07/29/22 14:41 07/29/22 07/29/22 07/29/22 06:59 14:59 22:59 Intake Total 1000 / 1000 Balance 1000 / 1000 Weight last 48 hrs Weight 108.862 kg Data : 07/29/22 13:15 07/29/22 13:15 Coding Level of Care Code Acute 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
[2022-07-29 16:48] LABS: Anion Gap 20.5 (5-19); Blood Urea Nitrogen 28 mg/dL (6-20); Calcium 8.8 mg/dL (8.5-10.5); Carbon Dioxide 21 mmol/L (22-29); Chloride 92 mmol/L (98-107); Glomerular Filtration Rate 71.1 mL/min (90-130); Glucose 381 mg/dL (65-115); Osmolality Calculated 291 mOsm/kg (285-295); Potassium 3.5 mmol/L (3.5-5.1); Sodium 130 mmol/L (136-145)
--- NOTE | 2022-07-29 16:54 | PC.NURSE ---
Glucose repeated, 335 will titrate insulin drip
[2022-07-29 17:04] LABS: Glucose Point of Care 332 mg/dL (70-110)
--- NOTE | 2022-07-29 17:50 | PC.NURSE ---
Report called to AICHA Swain
--- NOTE | 2022-07-29 18:08 | PM.HP ---
Providers/Chief Complaint Admitting Physician: Gemma Chang MD Chief Complaint: Full body tingles, vision problems, stumbling History of Present Illness Damian Ball is a 51 year old male who presented to hospital and on 07/23 for right arm weakness and pain he was diagnosed with carpal tunnel syndrome he was given ibuprofen & Prednisone 20 mg twice daily regimen for 5 days, patient started experiencing polyphagia polyuria and excessive thirst along dry mouth. Today he woke up feeling extremely sick, balance was off he noticed some blurry vision along lightheadedness. In the ER he was diagnosed with DKA. Review of Systems Const: Reports: chills Eyes: Reports: change in vision ENMT: Denies: throat pain Card: Denies: chest pain Resp: Denies: dyspnea GI: Reports: nausea : Denies: flank pain Musc: Denies: neck pain Skin/Breast: Denies: rash Neuro: Reports: headache(s) Psych: Reports: anxiety Endo: Reports: polyuria and polydipsia Addi/Lymph: Denies: easy bruising All/Imm: Denies: urticaria Medications/Allergies Home Medications Medication Instructions Recorded Confirmed Last Taken Type ibuprofen 800 mg tablet 800 mg PO Q8H PRN pain #30 tabs 07/23/22 07/29/22 07/29/22 05:00 Rx gabapentin 600 mg tablet 600 mg PO BID 07/29/22 07/29/22 2 Weeks Ago History ~07/15/22 levocetirizine 5 mg tablet (Xyzal) 5 mg PO BEDTIME 07/29/22 07/29/22 07/28/22 History naproxen 500 mg tablet 500 mg PO BID PRN Pain 07/29/22 07/29/22 Unknown History omeprazole magnesium 20 mg 20 mg PO BEDTIME 07/29/22 07/29/22 07/28/22 History tablet,delayed release (Prilosec OTC) tramadol 50 mg tablet (Ultram) 50 mg PO BID 07/29/22 07/29/22 07/29/22 History atorvastatin 40 mg tablet 40 mg PO DAILY #60 tabs 07/30/22 Unknown Rx blood sugar diagnostic (Accu-Chek #100 ea 07/30/22 Unknown Rx Guide test strips) blood-glucose meter (Accu-Chek #1 ea 07/30/22 Unknown Rx Guide Glucose Meter) insulin glargine 100 unit/mL (3 20 unit (0.2 mL) SUBCUT QPM #15 mL 07/30/22 Unknown Rx mL) subcutaneous pen (Lantus Solostar U-100 Insulin) insulin lispro 100 unit/mL 2 unit (0.02 mL) SUBCUT AC #15 mL 07/30/22 Unknown Rx subcutaneous pen (Humalog KwikPen (U-100) Insulin) lancets (Accu-Chek Fastclix Lancet #200 ea 07/30/22 Unknown Rx Drum) lisinopril 10 mg tablet 10 mg PO DAILY #90 tabs 07/30/22 Unknown Rx metformin 500 mg tablet 500 mg PO BID #90 tabs 07/30/22 Unknown Rx Allergies Allergy/AdvReac Type Severity Reaction Status Date / Time amoxicillin Allergy Unknown Unknown Verified 07/29/22 13:38 PFSH Acute PFSH: Medical History (Updated 07/29/22 @ 18:13 by Shaneka Perez MD) No pertinent family history Ureterolithiasis Surgical History (Updated 07/29/22 @ 18:13 by Shaneka Perez MD) History of ankle surgery RIGHT History of shoulder surgery BILATERAL Hx of appendectomy Family History Mother Hypertension Social History Smoking and tobacco status: former smoker Alcohol intake: never Caregiver/support person: No Lives independently: No Household members: spouse Marital status: Current occupational status: employed History of recent travel: No Current gender identity: Male Vitals/I&O/Wt Last Vital Signs Temp 98.2 F 07/29/22 12:33 Pulse 72 07/29/22 16:18 Resp 20 H 07/29/22 16:18 BP 147/75 07/29/22 16:18 Pulse Ox 99 07/29/22 16:18 O2 Del Method 07/29/22 16:18 07/29/22 07/29/22 07/29/22 06:59 14:59 22:59 Intake Total 1000 / 1000 23.4 / 1023.4 Balance 1000 / 1000 23.4 / 1023.4 Weight last 48 hrs Weight 108.862 kg Data : 07/30/22 04:46 07/30/22 04:46 Micro: Microbiology 07/29/22 16:35 Blood Culture - Preliminary Blood SPECIMEN COLLECTED 07/29/22 16:16 Blood Culture - Preliminary Blood SPECIMEN COLLECTED A&P Assessment and plan (1) DKA (diabetic ketoacidosis): Plan Mild DKA Start DKA protocol Start normal saline with potassium supplement Anion gap mildly high Start insulin drip N.p.o. Start feeds once anion gap closes Check A1c level Once anion gap closes we will give him 10 units of Lantus along sliding scale and consistent carb diet Once blood sugar is below 250 we will start D5 half-normal saline with potassium Discontinue steroids Full code Admit to ICU DVT prophylaxis on board Attestations Medical Necessity Statement*: More than 2 midnights anticipated for DKA Time Spent in Patient Care: 40 Coding Level of Care Code Acute Guest Experience Representative for Nadia Chun Diagnoses DKA (diabetic ketoacidosis) E11.10
[2022-07-29 18:22] LABS: Glucose Point of Care 277 mg/dL (70-110)
[2022-07-29 18:29] LABS: Estmated Average Glucose 306; Hemoglobin A1C 12.3 % (4.0-6.0)
[2022-07-29 18:36] LABS: Chol HDL Ratio 7.56 mg/dL (1.0-5.00); Cholesterol 204 mg/dL (0-200); HDL Cholesterol 27 mg/dL (60-100); Triglycerides 527 mg/dL (0-150); VLDL Cholestrol Calculation 105 mg/dL (0-30)
[2022-07-29] MEDS: heparin 5,000 unit/mL INJ 1 mL 5000 UNIT SUBCUT (18:37)
[2022-07-29] MEDS: potassium chloride premix 100 ML 25 MEQ IV (18:38)
[2022-07-29] MEDS: sodium chloride 0.9% 1,000 ML 50 ML IV (18:43)
[2022-07-29 18:57] LABS: LDL Cholesterol Direct 105 mg/dL (0-100)
--- NOTE | 2022-07-29 19:55 | PC.NURSE ---
New Orders Received Patient reporting pain in right shoulder, informed night shift manager hospitalist who gave orders for Tylenol 650 mg PO.
[2022-07-29] MEDS: sodium chlor 0.9% + KCl 40 mEq 40 MEQ/1,000 ML BAG 150 MEQ IV (19:57)
[2022-07-29 21:13] LABS: Glucose Point of Care 108 mg/dL (70-110)
[2022-07-29 21:13] LABS: Glucose Point of Care 136 mg/dL (70-110)
[2022-07-29 21:27] LABS: Blood Urea Nitrogen 21 mg/dL (6-20); Calcium 8.1 mg/dL (8.5-10.5); Carbon Dioxide 19 mmol/L (22-29); Chloride 100 mmol/L (98-107); Glomerular Filtration Rate 102.7 mL/min (90-130); Glucose 149 mg/dL (65-115); Osmolality Calculated 286 mOsm/kg (285-295); Sodium 135 mmol/L (136-145)
[2022-07-29] MEDS: acetaminophen 325 mg Tablet 650 MG PO (22:16)
[2022-07-29 22:21] LABS: Glucose Point of Care 175 mg/dL (70-110)
[2022-07-29 23:09] LABS: Glucose Point of Care 176 mg/dL (70-110)
[2022-07-30] VITALS (122 sets, daily range): BP systolic 93–165; BP diastolic 63–98; PULSE 63–103; RESP 11–23; TEMP 36.6–36.8; O2SAT 92–100; BMI 33.6
[2022-07-30 00:34] LABS: Glucose Point of Care 189 mg/dL (70-110)
[2022-07-30 01:30] LABS: Anion Gap 15.8 (5-19); Blood Urea Nitrogen 19 mg/dL (6-20); Calcium 8.2 mg/dL (8.5-10.5); Carbon Dioxide 22 mmol/L (22-29); Chloride 102 mmol/L (98-107); Glomerular Filtration Rate 102.7 mL/min (90-130); Glucose 212 mg/dL (65-115); Osmolality Calculated 291 mOsm/kg (285-295); Potassium 3.8 mmol/L (3.5-5.1); Sodium 136 mmol/L (136-145)
[2022-07-30] MEDS: dextrose 5%-ns + KCl 40 40 MEQ/1,000 ML BAG 75 MEQ IV (01:35)
[2022-07-30] MEDS: heparin 5,000 unit/mL INJ 1 mL 5000 UNIT SUBCUT (05:13)
[2022-07-30 05:17] LABS: Glucose Point of Care 139 mg/dL (70-110)
[2022-07-30 05:17] LABS: Glucose Point of Care 187 mg/dL (70-110)
[2022-07-30 05:17] LABS: Glucose Point of Care 170 mg/dL (70-110)
[2022-07-30 05:17] LABS: Glucose Point of Care 189 mg/dL (70-110)
[2022-07-30 05:17] LABS: Glucose Point of Care 164 mg/dL (70-110)
[2022-07-30 05:25] LABS: Basophils % 0.3 %; Eosinophils # 0.1 10^3/uL (0.0-0.8); Hematocrit 40.6 % (42.0-52.0); Lymphocytes # 2.4 10^3/uL (0.8-4.8); Lymphocytes % 31.2 %; Mean Corpuscular HGB Conc 34.5 g/dL (30.0-36.0); Mean Corpuscular Hemoglobin 30.6 pg (28.0-34.0); Mean Corpuscular Volume 88.8 fl (80-94); Mean Platelet Volume 11.1 fL (7.4-10.4); Monocytes # 0.4 10^3/uL (0.2-0.9); Monocytes % 5.2 %; Neutrophils # 4.74 10^3/uL (1.8-7.7); Nucleated Red Blood Cells % 0 %; Platelet Count 200 10^3/cmm (130-400); Red Blood Count 4.57 10^6/uL (4.1-5.3); Red Cell Distribution Width 11.9 % (12.1-15.1); White Blood Count 7.7 10^3/uL (4.0-10.0)
[2022-07-30 05:46] LABS: Alanine Aminotransferase 39 U/L (0-41); Albumin Level 3.4 g/dL (3.5-5.2); Alkaline Phosphatase 73 U/L (40-130); Anion Gap 14.4 (5-19); Aspartate Amino Transferase 33 U/L (0-40); Blood Urea Nitrogen 15 mg/dL (6-20); Calcium 8.1 mg/dL (8.5-10.5); Carbon Dioxide 23 mmol/L (22-29); Chloride 104 mmol/L (98-107); Globulin 2.5 g/dL (1.3-4.6); Glomerular Filtration Rate 102.7 mL/min (90-130); Glucose 155 mg/dL (65-115); Magnesium 2.3 mg/dL (1.7-2.3); Osmolality Calculated 290 mOsm/kg (285-295); Potassium 3.4 mmol/L (3.5-5.1); Sodium 138 mmol/L (136-145); Total Bilirubin 0.4 mg/dL (0.15-1.2); Total Protein 5.9 g/dL (6.6-8.7)
--- NOTE | 2022-07-30 06:40 | PC.NURSE ---
New Orders Received Informed mini shifter hospitalist that patient anion gap closed, received orders to turn off insulin gtt at 0730 after administering Lantus.
--- NOTE | 2022-07-30 06:50 | PC.NURSE ---
Shift Note Frequent safety and comfort rounds continue. Orders and/or nursing care completed as indicated. Patient monitored for response to intervention and treatment(s). Education provided includes insulin gtt. Patient verbalized understanding of teaching. Patient had an uneventful night, remains alert/oriented x4 on room air. Insulin, KCL and IVF infusing per orders please see MAR for details. Patient reported pain overnight, PRN medication administered. No wounds or skin issues noted at this time. Voided 1060 mls of urine overnight via urinal. Will continue to monitor.
[2022-07-30] MEDS: lidocaine 1% 5 ML in potassium chloride premix 100 ML 50 ML IV (06:55)
[2022-07-30] MEDS: insulin glargine 100 units/1 mL 15 UNIT SUBCUT (06:56)
[2022-07-30 07:13] LABS: Glucose Point of Care 162 mg/dL (70-110)
[2022-07-30] MEDS: sodium chloride 0.9% 1,000 ML 50 ML IV (07:54)
--- NOTE | 2022-07-30 07:58 | P.DS_ITS ---
Discharge Providers Date of Admission: 07/29/22 15:24 Date of Discharge: July 30, 2022 Attending Provider at Admission: Gemma Chang MD Attending Provider at Discharge: Shaneka Perez MD Diagnoses at Discharge Discharge Diagnosis (1) DKA (diabetic ketoacidosis): Status: Acute Reason for Visit Reason for Visit: Full body tingles, vision problems, stumbling Hospital Course Hospital Course 51-year-old male who was admitted for management of DKA, recently he was discharged after steroids administration in the ER for his carpal tunnel syndrome, he came back with signs of DKA, his DKA resolved with insulin drip, his potassium has been repleted, his hemoglobin A1c is 12 he will definitely need insulin. I am giving him Lantus 20 units along with 2 units Premeal of Humalog, adding metformin to increase insulin sensitivity, I am also adding atorvastatin because of his dyslipidemia, lisinopril has been added for his hypertension. We will give him referral to see Dr. Terrazas. Physical Exam Narrative: Awake and alert S1, S2 Was hydrated Abdomen soft Nonfocal neuro exam Currently doing well on room air Discharge Data Studies Completed and Pending Completed Studies During Hospitalization Category Date Time Status XR chest 1V portable [id number] Stat Exams 07/29/22 13:12 Completed Pending at discharge Category Date Time Status BMP [Basic Metabolic Panel] Q4H Lab 07/30/22 08:06 Ordered BMP [Basic Metabolic Panel] Q4H Lab 07/30/22 12:06 Ordered Blood Culture Stat Lab 07/29/22 16:35 Results Sputum Culture Stat Lab 07/29/22 16:02 Uncollected Urine Culture Stat Lab 07/29/22 13:15 Received Radiology Impressions Chest X-Ray 07/29/22 13:12 IMPRESSION: No acute finding. Laboratory Results WBC 7.7 10^3/uL (4.0-10.0) 07/30/22 04:46 RBC 4.57 10^6/uL (4.1-5.3) 07/30/22 04:46 Hgb 14.0 g/dL (11.7-16.6) 07/30/22 04:46 Hct 40.6 % (42.0-52.0) L 07/30/22 04:46 MCV 88.8 fl (80-94) 07/30/22 04:46 MCH 30.6 pg (28.0-34.0) 07/30/22 04:46 MCHC 34.5 g/dL (30.0-36.0) 07/30/22 04:46 RDW 11.9 % (12.1-15.1) L 07/30/22 04:46 Plt Count 200 10^3/cmm (130-400) D 07/30/22 04:46 MPV 11.1 fL (7.4-10.4) H 07/30/22 04:46 Neut % (Auto) 62.0 % 07/30/22 04:46 Lymph % (Auto) 31.2 % 07/30/22 04:46 [place] % (Auto) 5.2 % 07/30/22 04:46 Eos % (Auto) 1.0 % 07/30/22 04:46 Baso % (Auto) 0.3 % 07/30/22 04:46 Neut # (Auto) 4.74 10^3/uL (1.8-7.7) 07/30/22 04:46 Lymph # (Auto) 2.4 10^3/uL (0.8-4.8) 07/30/22 04:46 [place] # (Auto) 0.4 10^3/uL (0.2-0.9) 07/30/22 04:46 Eos # (Auto) 0.1 10^3/uL (0.0-0.8) 07/30/22 04:46 Baso # (Auto) 0.0 10^3/uL (0.0-0.1) 07/30/22 04:46 Nucleated RBC % (auto) 0 % 07/30/22 04:46 Nucleated RBCs # 0.0 /100WBC 07/30/22 04:46 Specimen Type Arterial 07/29/22 13:28 Sample Site Radial, left 07/29/22 13:28 ABG pH 7.39 (7.35-7.45) 07/29/22 13:28 ABG pCO2 28.1 mmHg (35-45) L 07/29/22 13:28 ABG pO2 85.3 mmHg (80.0-100.0) 07/29/22 13:28 ABG HCO3 16.9 mmol/L (22-26) L 07/29/22 13:28 ABG O2 Saturation 97.5 07/29/22 13:28 ABG Base Excess -6.3 mmol/L (-2.0-2.0) L 07/29/22 13:28 Ian Test Pos 07/29/22 13:28 A-a O2 Gradient 3.8 mmHg (5-10) L 07/29/22 13:28 Hematocrit 49.9 % (42-52) 07/29/22 13:28 Hgb O2 Saturation 95.9 % (95-100) 07/29/22 13:28 Carboxyhemoglobin 1.4 %THgb (0.4-20.1) 07/29/22 13:28 Methemoglobin 0.2 % (0.4-1.5) L 07/29/22 13:28 Total Hemoglobin 16.3 g/dL (14-18) 07/29/22 13:28 Sodium 124.0 mmol/L (131-143) L 07/29/22 13:28 Potassium 4.0 mmol/L (3.5-5.0) 07/29/22 13:28 Glucose 605.0 mg/dL (70-115) H 07/29/22 13:28 Ionized Calcium 1.1 mmol/L (1.1-1.4) 07/29/22 13:28 O2 Delivery Device Room air 07/29/22 13:28 FiO2 21.0 % 07/29/22 13:28 Juvenile Officer ID Cak 07/29/22 13:28 Sodium 138 mmol/L (136-145) 07/30/22 04:46 Potassium 3.4 mmol/L (3.5-5.1) L 07/30/22 04:46 Chloride 104 mmol/L (98-107) 07/30/22 04:46 Carbon Dioxide 23 mmol/L (22-29) 07/30/22 04:46 Anion Gap 14.4 (5-19) 07/30/22 04:46 BUN 15 mg/dL (6-20) 07/30/22 04:46 Creatinine 0.8 mg/dL (0.7-1.2) 07/30/22 04:46 GFR Calculation 102.7 mL/min (90-130) 07/30/22 04:46 Glucose 155 mg/dL (65-115) H 07/30/22 04:46 POC Glucose 162 mg/dL (70-110) H 07/30/22 06:53 Estimat Average Glucose 306 07/29/22 13:15 Hemoglobin A1c 12.3 % (4.0-6.0) H 07/29/22 13:15 Calculated Osmolality 290 mOsm/kg (285-295) 07/30/22 04:46 Lactic Acid 2.1 mmol/L (0.5-2.2) 07/29/22 13:15 Lactic Acid (Sepsis) 2.0 mmol/L (0.5-2.2) 07/29/22 16:16 Calcium 8.1 mg/dL (8.5-10.5) L 07/30/22 04:46 Magnesium 2.3 mg/dL (1.7-2.3) 07/30/22 04:46 Total Bilirubin 0.4 mg/dL (0.15-1.2) 07/30/22 04:46 AST 33 U/L (0-40) 07/30/22 04:46 ALT 39 U/L (0-41) 07/30/22 04:46 Alkaline Phosphatase 73 U/L (40-130) 07/30/22 04:46 Total Protein 5.9 g/dL (6.6-8.7) L D 07/30/22 04:46 Albumin 3.4 g/dL (3.5-5.2) L 07/30/22 04:46 Globulin 2.5 g/dL (1.3-4.6) 07/30/22 04:46 Triglycerides 527 mg/dL (0-150) H 07/29/22 16:16 Cholesterol 204 mg/dL (0-200) H 07/29/22 16:16 LDL Cholesterol Direct 105 mg/dL (0-100) H 07/29/22 16:16 LDL Cholesterol, Calc Not Reportable 07/29/22 16:16 Total VLDL Cholesterol 105 mg/dL (0-30) H 07/29/22 16:16 HDL Cholesterol 27 mg/dL (60-100) L 07/29/22 16:16 Cholesterol/HDL Ratio 7.56 mg/dL (1.0-5.00) H 07/29/22 16:16 Urine Color Yellow (Yellow) 07/29/22 13:15 Urine Appearance Clear (CLEAR) 07/29/22 13:15 Urine pH 5 (5-7) 07/29/22 13:15 Ur Specific [place] 1.010 (1.005-1.030) 07/29/22 13:15 Urine Protein Neg (Negative) 07/29/22 13:15 Urine Glucose (UA) 4+ (Normal) H 07/29/22 13:15 Urine Ketones 2+ (Negative) H 07/29/22 13:15 Urine Blood 2+ (Negative) H 07/29/22 13:15 Urine Nitrate Negative (Negative) 07/29/22 13:15 Urine Bilirubin Neg (Negative) 07/29/22 13:15 Urine Urobilinogen Norm mg/dL (Negative) 07/29/22 13:15 Ur Leukocyte Esterase Negative (Negative) 07/29/22 13:15 Urine RBC 0-4 /hpf (0-2) H 07/29/22 13:15 Urine WBC 0-4 /hpf (0-5) H 07/29/22 13:15 Ur Squamous Epith Cells 0-4 /hpf (0-5) H 07/29/22 13:15 Amorphous Sediment Not Reportable 07/29/22 13:15 Urine Bacteria Trace /hpf (NONE) 07/29/22 13:15 Urine Yeast Trace /hpf 07/29/22 13:15 Serum Ketones Positive (Negative) H 07/29/22 13:15 Vitals Last Vital Signs Temp 98.3 F 07/30/22 04:20 Pulse 67 07/30/22 06:35 Resp 12 07/30/22 06:35 BP 141/83 07/30/22 06:35 Pulse Ox 96 07/30/22 06:35 O2 Del Method 07/29/22 18:15 Discharge Plan Discharge Patient Disposition: Home Condition: Stable Prescriptions: New Lantus Solostar U-100 Insulin 100 unit/mL (3 mL) insulin pen 20 unit SUBCUT QPM Qty: 15 5RF (DME) Accu-Chek Guide Glucose Meter Misc See Rx Instructions .Route Qty: 1 0RF Rx Instructions: As directed (DME) Accu-Chek Guide test strips Strip See Rx Instructions .Route Qty: 100 4RF Rx Instructions: As directed (DME) Accu-Chek Fastclix Lancet Drum Misc See Rx Instructions .Route Qty: 200 4RF Rx Instructions: As directed metformin 500 mg tablet 500 mg PO BID Qty: 90 4RF atorvastatin 40 mg tablet 40 mg PO DAILY Qty: 60 4RF Humalog KwikPen Insulin 100 unit/mL insulin pen 2 unit SUBCUT AC Qty: 15 5RF lisinopril 10 mg tablet 10 mg PO DAILY Qty: 90 1RF Continued ibuprofen 800 mg tablet 800 mg PO Q8H PRN (Reason: pain) Qty: 30 0RF gabapentin 600 mg Tablet 600 mg PO BID Ultram 50 mg Tablet 50 mg PO BID naproxen 500 mg Tablet 500 mg PO BID PRN (Reason: Pain) Prilosec OTC 20 mg Tablet,Delayed Release (Dr/Ec) 20 mg PO BEDTIME Xyzal 5 mg Tablet 5 mg PO BEDTIME Discontinued prednisone 20 mg tablet 20 mg PO BID Rx Instructions: rx filled 07/23/22 5d/s Discharge Orders: Discharge Order (Routine); Ordered 07/30/22 Ordered By: Shaneka Perez Patient Instructions: Metformin (By mouth), Atorvastatin (By mouth) (Lipitor), Insulin Glargine (By injection) (Lantus, Lantus SoloStar, Toujeo, Semglee), Insulin Lispro (By injection) (HumaLOG, HumaLOG Pen, Lispro-PFC,..., Diabetic Ketoacidosis (DC), Type 1 Diabetes in Adults: New Diagnosis (DC), Basic Carbohydrate Counting (DC), Opioid Safety, Pain Management Patient's Health Concerns: You will need retina specialist to look in your eyes For your diabetes you will need Lantus 20 units every night and 2 units before meals and check your sugar before meals as well if you need to take extra insulin according to the low-dose sliding scale I am also adding metformin Please follow-up with senior accountant cpa I am adding lisinopril for your blood pressure Maintain a blood pressure log and daily glucose log and show to your primary doctor or senior accountant cpa Discharge Attestations Time Spent in Discharge Care*: less than 30 min Quality Metrics Clinical Quality Measures [ No reported AMI, CVA or VTE this stay] Coding Level of Care Code Acute Chg FW DC note Diagnoses DKA (diabetic ketoacidosis) E11.10
[2022-07-30 08:09] LABS: Glucose Point of Care 159 mg/dL (70-110)
[2022-07-30] MEDS: insulin lispro 100 unit/1 mL SUBCUT (08:49)
--- NOTE | 2022-07-30 10:21 | PC.SOCIAL ---
[facility]ed [facility] & needs to follow up with an Tab Builder. He is okay with seeing Dr Terrazas here at [facility]. [facility] Supervisor Data Processing faxed H&P, D/c summary & paperwork to the [facility]. Called & Left a message for Saray at the [facility] of this & that pt will need [place] approval. Asked that she would call Cm back if they have any questions.
--- NOTE | 2022-07-30 10:37 | PC.NURSE ---
Patient Discharged... IVs removed, followup appointment, new medication, and activity instructions provided. Nurse allowed patient to give his morning dose of insulin subQ.
== END 2022-07-30 11:06 | disposition home or self-care (01) | DRG 639 ==
LOC: ER 15:47 → ICU 16:34
PROVIDERS: Physician Assistant; Admitting Provider Internal Medicine; Emergency Provider Family Medicine; Visit Provider Internal Medicine
DX: E11.10 Type 2 diabetes mellitus with ketoacidosis without coma (principal); T38.0X5A Adverse effect of glucocorticoids and synthetic analogues, initial encounter; G56.01 Carpal tunnel syndrome, right upper limb; Z87.891 Personal history of nicotine dependence; Z79.4 Long term (current) use of insulin; Z79.84 Long term (current) use of oral hypoglycemic drugs
CPT/HCPCS: 36415; 36416; 36600; 71045; 80048; 80051; 80053; 80061; 81001; 82009; 82330; 82805; 82962; 83036; 83605; 83721; 83735; 85025; 87040; 87086; 93005; 94664; 96361; 96365; 96372; 96375; 99285; J1644; J1815; J3480; J7030; J7050

== ENCOUNTER → 2022-08-06 08:21 | Outpatient (BNVA) | payer OTHER, SELFPAY | PROVIDERS: Visit Provider Specialist | DX: M25.511 Pain in right shoulder (principal) | CPT/HCPCS: 73030; 99204 ==

== ENCOUNTER 2022-09-03 09:48 | Outpatient (CLI) | payer OTHER, SELFPAY ==
--- NOTE | 2022-09-03 10:00 | MR_ITS ---
WS: [id number] MRI RIGHT SHOULDER HISTORY: Posterior shoulder pain with limited range of motion. COMPARISON: 08/06/2022 TECHNIQUE: Multiplanar sequences of the shoulder joint are submitted. Prior resection of the distal RIGHT clavicle. Postsurgical widening of the AC joint. There is a very small osteophyte along the distal undersurface of the acromion with mild subacromial impingement. The re is a small amount of adjacent reactive fluid. No os acromion. Micrometallic artifacts at the surgi denis site related to the clavicle resection. Biceps tendon in normal position at the bicipital groove. Intrasubstance degeneration in the supraspinatus tendon. No tear is identified. There is a very tiny amount of fluid in the distal tendon but no insertion site tear is identified. Mild fatty replacement and atrophy of the supraspinatus muscle. The remaining rotator cuff muscles are normal. No labral te ar. Cortex is preserved of the humeral head. MR/MR shoulder RT wo con* [id number] IMPRESSION: 1. Prior resection of the distal RIGHT clavicle. 2. Mild tendinopathy in the distal supraspinatus tendon. No tear identified. 3. Mild subacromial impingement.
== END 2022-09-03 09:49 | disposition home or self-care (01) ==
LOC: RAD 09:49
PROVIDERS: PCP Emergency Medicine Emergency Medical Services; Visit Provider Specialist
DX: M25.511 Pain in right shoulder (principal)
CPT/HCPCS: 73221

== ENCOUNTER → 2022-10-03 09:48 | Outpatient (BNVA) | payer OTHER, SELFPAY | PROVIDERS: PCP Emergency Medicine Emergency Medical Services; Referring Provider Emergency Medicine Emergency Medical Services; Visit Provider Internal Medicine | DX: E10.9 Type 1 diabetes mellitus without complications (principal); E78.2 Mixed hyperlipidemia; Z87.891 Personal history of nicotine dependence; Z79.4 Long term (current) use of insulin; Z79.84 Long term (current) use of oral hypoglycemic drugs | CPT/HCPCS: 36415; 80053; 80061; 82044; 83036; 84681; 99204 ==

== ENCOUNTER → 2022-10-22 14:12 | Outpatient (BNVA) | payer OTHER, SELFPAY | PROVIDERS: PCP Emergency Medicine Emergency Medical Services; Referring Provider Specialist; Visit Provider Specialist | DX: G56.03 Carpal tunnel syndrome, bilateral upper limbs (principal) | CPT/HCPCS: 95910; 95912 ==

== ENCOUNTER → 2022-12-25 08:47 | Outpatient (BNVA) | payer OTHER, SELFPAY | PROVIDERS: PCP Emergency Medicine Emergency Medical Services; Referring Provider Specialist; Visit Provider Specialist | DX: G56.03 Carpal tunnel syndrome, bilateral upper limbs (principal); M48.02 Spinal stenosis, cervical region | CPT/HCPCS: 95860; 95886; 99202 ==

== ENCOUNTER → 2023-02-05 13:14 | Outpatient (BNVA) | payer OTHER, SELFPAY | PROVIDERS: PCP Emergency Medicine Emergency Medical Services; Visit Provider Internal Medicine | DX: E10.9 Type 1 diabetes mellitus without complications (principal); E78.2 Mixed hyperlipidemia; Z79.84 Long term (current) use of oral hypoglycemic drugs; Z79.4 Long term (current) use of insulin | CPT/HCPCS: 80053; 80061; 82044; 83036; 86337; 86341; 99214 ==

== ENCOUNTER 2023-05-07 14:55 | Outpatient (CLI) | payer OTHER, SELFPAY ==
[2023-05-07 15:39] LABS: Estmated Average Glucose 137; Hemoglobin A1C 6.4 % (4.0-6.0)
[2023-05-07 16:01] LABS: Creatinine Urine, Random 268 mg/dL (39-259); Microalbum Creatinine Ratio Ur 19 mg/dL (0-20); Microalbumin Random Urine 5 ug/dL (0-20)
[2023-05-07 16:06] LABS: Alanine Aminotransferase 30 U/L (0-41); Albumin Level 4.4 g/dL (3.5-5.2); Alkaline Phosphatase 79 U/L (40-130); Anion Gap 16.2 (5-19); Aspartate Amino Transferase 22 U/L (0-40); Blood Urea Nitrogen 14 mg/dL (6-20); Calcium 9.1 mg/dL (8.5-10.5); Carbon Dioxide 24 mmol/L (22-29); Chloride 103 mmol/L (98-107); Chol HDL Ratio 5.95 mg/dL (1.0-5.00); Cholesterol 125 mg/dL (0-200); Globulin 2.8 g/dL (1.3-4.6); Glomerular Filtration Rate 79.1 mL/min (90-130); Glucose 128 mg/dL (65-115); HDL Cholesterol 21 mg/dL (60-100); LDL Cholesterol Calculated 35 mg/dL (50-129); LDL HDL Ratio 1.67 RATIO (0.00-3.22); Osmolality Calculated 290 mOsm/kg (285-295); Potassium 4.2 mmol/L (3.5-5.1); Sodium 139 mmol/L (136-145); Total Bilirubin 0.4 mg/dL (0.15-1.2); Total Protein 7.2 g/dL (6.6-8.7); Triglycerides 344 mg/dL (0-150)
== END 2023-05-07 14:56 | disposition home or self-care (01) ==
PROVIDERS: PCP Emergency Medicine Emergency Medical Services; Visit Provider Internal Medicine
DX: E11.9 Type 2 diabetes mellitus without complications (principal); E78.2 Mixed hyperlipidemia
CPT/HCPCS: 80053; 80061; 82044; 83036

== ENCOUNTER 2023-05-14 11:29 | Emergency (ER) | payer OTHER, SELFPAY ==
[2023-05-14] VITALS (11 sets, daily range): BP systolic 76–130; BP diastolic 50–83; PULSE 54–82; RESP 13–17; TEMP 36.4; O2SAT 90–100; BMI 32.5
--- NOTE | 2023-05-14 11:52 | ECG_ITS ---
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 Measurements Intervals [place] Rate: 74 P: 36 MO: 187 QRS: -3 QRSD: 91 T: 56 QT: 408 QTc: 454 Interpretive Statements SINUS RHYTHM LOW QRS VOLTAGE IN PRECORDIAL LEADS [QRS DEFLECTION < 1.0 mV IN CHEST LEADS] NONSPECIFIC T-WAVE ABNORMALITY Compared to ECG 07/29/2022 13:28:25 Low QRS voltage now present T-wave abnormality now present Electronically Signed On 05-14-2023 13:59:12 CDT by Eyad Moore M.D. [email or web address]/[id number] f
--- NOTE | 2023-05-14 12:06 | XR_ITS ---
WS: [id number] EXAMINATION: XR chest 1V portable [id number] REASON FOR EXAM: hypotension COMPARISON: None available. ORDER DATE: 05/14/2023 12:06 PM TECHNIQUE: A single, portable frontal chest x-ray was obtained. X-RAY FINDINGS: The lungs are clear. Pleural spaces are clear. No pleural effusions or pneumothorax. Cardiomediastinal silhouette is normal. No evidence for pulmonary edema. Soft tissue and osseous structures are unremarkable. No tubes or lines are present. XR/XR chest 1V portable [id number] IMPRESSION: Unremarkable frontal portable chest x-ray.
--- NOTE | 2023-05-14 12:25 | W.ED.DIZZY ---
HPI - Dizziness General: Chief Complaint: Dizziness Stated Complaint: Low BP, upper abd pain Time Seen by Provider: 05/14/23 11:54 History of Present Illness: HPI Narrative: Patient presents to the ER with complaints of low blood pressure and abdominal seeing the walking dragline oiler when they found his blood pressure was 70 systolic and he was lightheaded and dizzy. They said he should be go to the ER for further evaluation and treatment and on the way here his abdomen started hurting. Patient is only on 10 mg lisinopril a day and he uses a c4 planner and he says there is no way he could have taken more than his prescribed amount. Patient does work in the heat. Patient just recently transferred over to nights so when he goes in he is under the full heat immediately. Unlike when he was in a daytime he would work his way up to the midday heat. Patient says he has been drinking lots of water and eating normally. Has never had any lightheaded dizziness like this before. Patient is on insulin requiring diabetic and sugars have been running normal. Review of Systems General: Reports: 10 or more systems reviewed and unremarkable except in HPI and below PFSH ED PFSH: Medical History DKA (diabetic ketoacidosis) No pertinent family history Ureterolithiasis Surgical History History of ankle surgery RIGHT History of shoulder surgery BILATERAL Hx of appendectomy Family History Mother Hypertension Social History Smoking and tobacco status: former smoker Alcohol intake: never Substance/Drug Use: never Caregiver/support person: No Lives independently: No Household members: spouse Marital status: Current occupational status: employed Current gender identity: Male Physical Exam Const: COMMON NORMALS: no acute distress, average body habitus, patient oriented x3, no limitations, healthy appearing, alert and well nourished HENMT: COMMON NORMALS: normocephalic, atraumatic, hearing grossly normal bilaterally, external ears normal, Normal external nose present and moist oral mucous membranes HEAD & SCALP: normocephalic and atraumatic NOSE: Normal external nose present EXTERNAL EAR: Yes external ears normal Eye: COMMON NORMALS: Equal, round and reactive pupils present, EOMs intact bilaterally, conjunctivae normal and no scleral icterus CONJUNCTIVA: Yes conjunctivae normal PUPIL: Yes Equal, round and reactive pupils present Neck/C-Spine: COMMON NORMALS: full ROM, no lymphadenopathy, supple, no meningeal signs, no JVD and Thyroid normal THYROID: Thyroid normal Chest: COMMONS NORMALS: normal inspection of the chest and normal palpation of entire chest wall Resp: COMMON NORMALS: normal respiratory effort, No retractions, No use of accessory muscles and clear to auscultation bilaterally AUSCULTATION: clear to auscultation bilaterally Cardio: COMMON NORMALS: no JVD, regular rate, regular rhythm, S1 normal heart sound present, S2 normal heart sound present, No gallops present (Cardio), No clicks present (Cardio), No murmurs present (Cardio) and No rub (Cardio) RATE: regular rate RHYTHM: regular rhythm HEART SOUNDS: S1 normal heart sound present and S2 normal heart sound present GI: COMMON NORMALS: Normal to inspection, nondistended, normoactive bowel sounds present, Soft to palpation, non-tender, No hepatosplenomegaly present and no masses PALPATION: Yes Soft to palpation and Yes No hepatosplenomegaly present : COMMON NORMALS: Yes no CVA tenderness BLADDER/KIDNEY EXAM: Yes no CVA tenderness Back/Pelvis: COMMON NORMALS: no CVA tenderness Neuro: COMMON NORMALS: patient oriented x3 SENSORIUM/ORIENTATION: Yes alert MENINGEAL SIGNS: Yes no meningeal signs Course Vital Signs: Vital signs: Vital Signs Temperature 97.5 F L 05/14/23 11:33 Pulse Rate 66 05/14/23 17:45 Respiratory Rate 15 05/14/23 17:45 Blood Pressure 130/83 05/14/23 17:45 Pulse Oximetry 99 05/14/23 17:45 MDM - Dizziness Medical Decision Making Presents to the ER from his endocrinology appointment secondary with low blood pressure. Lab work was obtained patient was given a liter bolus normal saline. Patient's blood pressure improved from the 70s to the 90s. Work showed patient a 14,000 white count, his creatinine were were significantly elevated from just a week ago when they were normal now they are 61 and 5.1, patient's phosphorus was 8.1 and his magnesium is 2.5. Patient was given 1 L bolus and still has not produced any urine. Dr. Franco was consulted he suggested we do a stat bladder scan to see a if he is retaining and possible rule out any obstruction. He will see the patient in the ER. Removed ordered CT scan which showed obstructive uropathy with a 4.5 mm left ureteral stone. Dr. Franco thought the patient should go to a place as urologist. [facility] was notified Dr. Cabral urology excepted the patient in transfer but wound is going through the ER. I spoke with the ER doctor Dr. Valles who accepted patient be transferred to [facility] Differential Diagnosis Unlikely adverse reaction to drug, benign paroxysmal positional vertigo, orthostatic hypotension, vertebral basilar insufficiency, cerebrovascular accident, acute vestibular neuronitis or transient cerebral ischemia Medical Records I reviewed the patient's medical records. Lab Data 05/14/23 12:35 05/14/23 12:35 Radiology Impressions Chest X-Ray 05/14/23 12:06 IMPRESSION: Unremarkable frontal portable chest x-ray. Abdomen/Pelvis CT 05/14/23 14:38 IMPRESSION: 1. Approximally 4.5 mm distal left ureteral calculus at the upper sacral level within the pelvis, with minimal obstructive uropathy. 2. Small or tiny nonobstructing renal calculi bilaterally indicating nephrolithiasis. 3. No acute findings otherwise. Laboratory Results WBC 14.8 10^3/uL (4.0-10.0) H 05/14/23 12:35 RBC 4.97 10^6/uL (4.1-5.3) 05/14/23 12:35 Hgb 14.8 g/dL (11.7-16.6) 05/14/23 12:35 Hct 44.7 % (42.0-52.0) 05/14/23 12:35 MCV 89.9 fl (80-94) 05/14/23 12:35 MCH 29.8 pg (28.0-34.0) 05/14/23 12:35 MCHC 33.1 g/dL (30.0-36.0) 05/14/23 12:35 RDW 13.8 % (12.1-15.1) 05/14/23 12:35 Plt Count 266 10^3/cmm (130-400) 05/14/23 12:35 MPV 9.9 fL (7.4-10.4) 05/14/23 12:35 Neut % (Auto) 70.3 % 05/14/23 12:35 Lymph % (Auto) 18.8 % 05/14/23 12:35 [place] % (Auto) 8.6 % 05/14/23 12:35 Eos % (Auto) 1.6 % 05/14/23 12:35 Baso % (Auto) 0.3 % 05/14/23 12:35 Neut # (Auto) 10.42 10^3/uL (1.8-7.7) H 05/14/23 12:35 Lymph # (Auto) 2.8 10^3/uL (0.8-4.8) 05/14/23 12:35 [place] # (Auto) 1.3 10^3/uL (0.2-0.9) H 05/14/23 12:35 Eos # (Auto) 0.2 10^3/uL (0.0-0.8) 05/14/23 12:35 Baso # (Auto) 0.0 10^3/uL (0.0-0.1) 05/14/23 12:35 Nucleated RBC % (auto) 0 % 05/14/23 12:35 Nucleated RBCs # 0.0 /100WBC 05/14/23 12:35 ESR 18 mm/hr (0-10) H 05/14/23 12:35 Specimen Type Arterial 05/14/23 14:41 Sample Site Brachial, right 05/14/23 14:41 ABG pH 7.32 (7.35-7.45) L 05/14/23 14:41 ABG pCO2 40.8 mmHg (35-45) 05/14/23 14:41 ABG pO2 72.5 mmHg (80.0-100.0) L 05/14/23 14:41 ABG HCO3 21.0 mmol/L (22-26) L 05/14/23 14:41 ABG Base Excess -4.8 mmol/L (-2.0-2.0) L 05/14/23 14:41 Ian Test N/a 05/14/23 14:41 Hematocrit 44.1 % (42-52) 05/14/23 14:41 O2 Delivery Device Room air 05/14/23 14:41 FiO2 21.0 % 05/14/23 14:41 Installment Dealer ID Amh 05/14/23 14:41 Sodium 130 mmol/L (136-145) L 05/14/23 12:35 Potassium 4.2 mmol/L (3.5-5.1) 05/14/23 12:35 Chloride 90 mmol/L (98-107) L 05/14/23 12:35 Carbon Dioxide 19 mmol/L (22-29) L 05/14/23 12:35 Anion Gap 25.2 (5-19) H 05/14/23 12:35 BUN 61 mg/dL (6-20) H 05/14/23 12:35 Creatinine 5.1 mg/dL (0.7-1.2) H 05/14/23 12:35 GFR Calculation 12.1 mL/min (90-130) L 05/14/23 12:35 Glucose 115 mg/dL (65-115) 05/14/23 12:35 Calculated Osmolality 288 mOsm/kg (285-295) 05/14/23 12:35 Lactic Acid 1.7 mmol/L (0.5-2.2) 05/14/23 12:35 Calcium 8.6 mg/dL (8.5-10.5) 05/14/23 12:35 Phosphorus 8.1 mg/dL (2.5-4.5) H* 05/14/23 12:35 Magnesium 2.5 mg/dL (1.7-2.3) H 05/14/23 12:35 Total Bilirubin 0.5 mg/dL (0.15-1.2) 05/14/23 12:35 AST 45 U/L (0-40) H 05/14/23 12:35 ALT 36 U/L (0-41) 05/14/23 12:35 Alkaline Phosphatase 85 U/L (40-130) 05/14/23 12:35 Creatine Kinase 1716 U/L (39-308) H* 05/14/23 12:35 Troponin T Baseline 26 ng/L (0-15) H 05/14/23 12:35 Troponin T 120 Minute 23.67 ng/L (0-15) H 05/14/23 14:26 Delta Troponin T -2.33 ABS# (0-10) L 05/14/23 14:26 C-Reactive Protein 10.2 mg/L (0.0-4.9) H 05/14/23 12:35 Total Protein 7.2 g/dL (6.6-8.7) 05/14/23 12:35 Albumin 4.6 g/dL (3.5-5.2) 05/14/23 12:35 Globulin 2.6 g/dL (1.3-4.6) 05/14/23 12:35 Lipase 25 U/L (13-60) 05/14/23 12:35 Procalcitonin 0.51 ng/mL (0-0.5) H 05/14/23 12:35 TSH 1.32 uIU/mL (0.27-4.20) 05/14/23 12:35 Serum Ketones Negative (Negative) 05/14/23 12:35 EKG Data EKG 1: I personally reviewed and interpreted this EKG as follows: EKG interpretation date: 05/14/23 EKG interpretation time: 11:52 Prior EKG tracings: not available for review Interpretation: EKG showed ventricular rate 74 beats minute, SC interval 187, QRS duration 91, QTc 435, sinus rhythm with [place] T wave changes. EKG 2: I personally reviewed and interpreted this EKG as follows: EKG interpretation date: 05/14/23 EKG interpretation time: 14:07 Prior EKG tracings: available for review Interpretation: EKG showed ventricular rate 63 beats minute, SC interval 196, QRS 91, QTc 451, sinus rhythm, no ST-T wave changes EKG 3: I personally reviewed and interpreted this EKG as follows: EKG interpretation date: 05/14/23 EKG interpretation time: 18:11 Prior EKG tracings: available for review Interpretation: EKG showed normal sinus rhythm with a ventricular rate 62 beats minute, SC interval 196, QRS duration 105, QTc 437, nonspecific T wave abnormality Discharge Plan Discharge Patient Disposition: Xfer Short-Term Hosp Clinical Impression: Ureteral calculus, left, Acute unilateral obstructive uropathy Acute renal failure Qualifiers: Acute renal failure type: unspecified Qualified Code(s): N17.9 - Acute kidney failure, unspecified Condition: Stable Referrals: Ricardo Wagner DO [Primary Care Provider] - Coding Level of Care Code ED Cardiac Care Unit Nurse for Chg Lay
[2023-05-14 12:40] LABS: Basophils % 0.3 %; Eosinophils # 0.2 10^3/uL (0.0-0.8); Eosinophils % 1.6 %; Hematocrit 44.7 % (42.0-52.0); Hemoglobin 14.8 g/dL (11.7-16.6); Lymphocytes # 2.8 10^3/uL (0.8-4.8); Lymphocytes % 18.8 %; Mean Corpuscular HGB Conc 33.1 g/dL (30.0-36.0); Mean Corpuscular Hemoglobin 29.8 pg (28.0-34.0); Mean Corpuscular Volume 89.9 fl (80-94); Mean Platelet Volume 9.9 fL (7.4-10.4); Monocytes # 1.3 10^3/uL (0.2-0.9); Monocytes % 8.6 %; Neutrophils # 10.42 10^3/uL (1.8-7.7); Neutrophils % 70.3 %; Nucleated Red Blood Cells % 0 %; Platelet Count 266 10^3/cmm (130-400); Red Blood Count 4.97 10^6/uL (4.1-5.3); Red Cell Distribution Width 13.8 % (12.1-15.1); White Blood Count 14.8 10^3/uL (4.0-10.0)
[2023-05-14 13:08] LABS: Alanine Aminotransferase 36 U/L (0-41); Albumin Level 4.6 g/dL (3.5-5.2); Alkaline Phosphatase 85 U/L (40-130); Anion Gap 25.2 (5-19); Aspartate Amino Transferase 45 U/L (0-40); Blood Urea Nitrogen 61 mg/dL (6-20); Calcium 8.6 mg/dL (8.5-10.5); Carbon Dioxide 19 mmol/L (22-29); Chloride 90 mmol/L (98-107); Globulin 2.6 g/dL (1.3-4.6); Glomerular Filtration Rate 12.1 mL/min (90-130); Glucose 115 mg/dL (65-115); Lipase 25 U/L (13-60); Magnesium 2.5 mg/dL (1.7-2.3); Osmolality Calculated 288 mOsm/kg (285-295); Potassium 4.2 mmol/L (3.5-5.1); Sodium 130 mmol/L (136-145); Total Bilirubin 0.5 mg/dL (0.15-1.2); Total Protein 7.2 g/dL (6.6-8.7)
[2023-05-14 13:09] LABS: Troponin(5th) Baseline 26 ng/L (0-15)
--- NOTE | 2023-05-14 13:17 | PC.PHAR ---
[facility]ED [facility] 1:18 [facility] MED LIST
[2023-05-14] MEDS: sodium chloride 0.9% 1,000 ML 999 ML IV (13:38)
[2023-05-14 13:46] LABS: Phosphorus 8.1 mg/dL (2.5-4.5)
--- NOTE | 2023-05-14 14:06 | ECG_ITS ---
[facility] Test Date: 2023-05-14 Pat Name: Damian Ball Department: Room: Gender: Male Deck Mate: : 1970 Requested By: Jostin Correa Order Number: [id number] Alexus MD: Eyad Moore M.D. Measurements Intervals [place] Rate: 63 P: 48 [place]: 196 QRS: 14 QRSD: 91 T: 36 QT: 443 QTc: 456 Interpretive Statements SINUS RHYTHM LOW QRS VOLTAGE IN PRECORDIAL LEADS [QRS DEFLECTION < 1.0 mV IN CHEST LEADS] Compared to ECG 05/14/2023 11:52:45 T-wave abnormality no longer present Electronically Signed On 05-14-2023 23:40:53 CDT by Eyad Moore M.D. [id number]
--- NOTE | 2023-05-14 14:11 | PC.PHAR ---
PT STS HE HASN'T TAKEN INSULIN IN 3 MONTHS- PT DID TAKE 4 UNITS OF HUMALOG THIS MORNING BECAUSE HE THOUGHT HIS SUGAR WAS HIGH- PT ALSO STATE HIS DR TOOK HIM OFF OF LISINOPRIL 10MG TODAY 05/14/23
[2023-05-14 14:36] LABS: Erythrocyte Sedimentation Rate 18 mm/hr (0-10)
--- NOTE | 2023-05-14 14:38 | CTR_ITS ---
PROCEDURE INFORMATION: Exam: CT Abdomen And Pelvis Without Contrast Exam date and time: 05/14/2023 3:14 PM Age: 52 years old Clinical indication: Abdominal pain; Localized; Upper; Additional info: Renal stone TECHNIQUE: Imaging protocol: Computed tomography of the abdomen and pelvis without contrast. Radiation optimization: All CT scans at this facility use at least one of these dose optimization techniques: automated exposure control; mA and/or kV adjustment per patient size (includes targeted exams where dose is matched to clinical indication); or iterative reconstruction. REPORTING DATA: Count of CT and Cardiac NM exams in prior 12 months: This patient has received 2 known CTs and 0 known cardiac nuclear medicine studies in the 12 months prior to the current study. COMPARISON: CT kidney stone [id number] 05/20/2019 10:24 AM RADIATION DOSE METRICS: Total DLP (mGy-cm): 898.63 FINDINGS: Lungs: No significant infiltrate or effusion within the visualized lung bases. Liver: Normal. No mass. Gallbladder and bile ducts: Normal. No calcified stones. No ductal dilation. Pancreas: Normal. No ductal dilation. Spleen: Normal. No splenomegaly. Adrenal glands: Normal. No mass. Kidneys and ureters: Small or tiny nonobstructing renal calculi are seen bilaterally. Approximally 4.5 mm distal left ureteral calculus is seen at the upper sacral level within the pelvis. This results in minimal obstructive uropathy. No abnormal perinephric stranding. Stomach and bowel: Unremarkable. No obstruction. No mucosal thickening. A few scattered colonic diverticula. A tiny umbilical hernia fat. Appendix: Appendix appears surgically absent. Intraperitoneal space: Unremarkable. No free air. No significant fluid collection. Vasculature: Unremarkable. No abdominal aortic aneurysm. Lymph nodes: Unremarkable. No enlarged lymph nodes. Urinary bladder: Unremarkable as visualized. Reproductive: A few prostate calcifications are seen which can be associated with chronic prostatitis. Bones/joints: No acute findings. Soft tissues: Unremarkable. CT/CT abdomen pelvis wo con [id number] IMPRESSION: 1. Approximally 4.5 mm distal left ureteral calculus at the upper sacral level within the pelvis, with minimal obstructive uropathy. 2. Small or tiny nonobstructing renal calculi bilaterally indicating nephrolithiasis. 3. No acute findings otherwise.
[2023-05-14 14:46] LABS: Lactic Sepsis W/Reflex 1.7 mmol/L (0.5-2.2)
[2023-05-14 14:49] LABS: Ketone (Acetest) Serum Negative (Negative)
--- NOTE | 2023-05-14 14:51 | PM.HP ---
Providers/Chief Complaint Primary Care Provider: Ricardo Wagner DO Chief Complaint: Low BP, upper abd pain History of Present Illness Damian Ball is a 52 year old male with a past history of type 2 diabetes mellitus, history of nephrolithiasis, who presents [facility] due to syncope, lightheadedness, dizziness. 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 Terrazas this morning, his blood pressures were in the 70s over 40s so she sent him over to the emergency room for evaluation. He has not taken his metformin yet, but last night he did take 4units of insulin he tells me he rarely uses insulin for hyperglycemia. He does take naproxen at home. Does report of left flank pain, no dysuria, hematuria, no nausea, no vomiting, no abdominal pain. This left flank pain has been going on for the last 24 hours. He tells me he has been urinating only 2 times a day but this is normal for him. Does report chills. No fevers. No family history of any kidney problems. Review of Systems Const: Reports: chills; Denies: fever(s) Eyes: Denies: change in vision Card: Reports: syncope; Denies: chest pain Resp: Denies: dyspnea GI: Denies: abdominal pain, nausea or vomiting : Denies: flank pain, difficulty urinating or dysuria Musc: Reports: back pain; Denies: neck pain Skin/Breast: Denies: rash Neuro: Denies: headache(s) Psych: Denies: anxiety Endo: Denies: polyuria or polydipsia Medications/Allergies Home Medications Medication Instructions Recorded Confirmed Last Taken Type gabapentin 600 mg tablet 600 mg PO BID 07/29/22 05/14/23 05/14/23 History levocetirizine 5 mg tablet (Xyzal) 5 mg PO BEDTIME 07/29/22 05/14/23 05/13/23 History naproxen 500 mg tablet 500 mg PO BID PRN Pain 07/29/22 05/14/23 Unknown History omeprazole magnesium 20 mg 20 mg PO BEDTIME 07/29/22 05/14/23 05/13/23 History tablet,delayed release (Prilosec OTC) tramadol 50 mg tablet (Ultram) 50 mg PO BID 07/29/22 05/14/23 05/14/23 History atorvastatin 40 mg tablet 40 mg PO DAILY #60 tabs 07/30/22 05/14/23 05/14/23 Rx blood sugar diagnostic (Accu-Chek #100 ea 07/30/22 05/14/23 Unknown Rx Guide test strips) blood-glucose meter (Accu-Chek #1 ea 07/30/22 05/14/23 Unknown Rx Guide Glucose Meter) lancets (Accu-Chek Fastclix Lancet #200 ea 07/30/22 05/14/23 Unknown Rx Drum) metformin 500 mg tablet,extended 1,000 mg PO BID #180 tabs 05/14/23 05/14/23 05/14/23 Rx release 24 hr Allergies Allergy/AdvReac Type Severity Reaction Status Date / Time amoxicillin Allergy Unknown Unknown Verified 05/14/23 14:11 PFSH Acute PFSH: Medical History DKA (diabetic ketoacidosis) No pertinent family history Ureterolithiasis Surgical History History of ankle surgery RIGHT History of shoulder surgery BILATERAL Hx of appendectomy Family History Mother Hypertension Social History Smoking and tobacco status: former smoker Alcohol intake: never Substance/Drug Use: never Caregiver/support person: No Lives independently: No Household members: spouse Marital status: Current occupational status: employed Current gender identity: Male Vitals/I&O/Wt Last Vital Signs Temp 97.5 F L 05/14/23 11:33 Pulse 82 05/14/23 11:33 Resp 16 05/14/23 11:33 BP 76/54 05/14/23 11:33 Pulse Ox 97 05/14/23 11:33 Weight last 48 hrs Weight 99.79 kg Physical Exam Const: COMMON NORMALS: no acute distress and patient oriented x3 GENERAL APPEARANCE: cooperative, well kempt and well developed HENMT: COMMON NORMALS: normocephalic and Normal external nose present HEAD & SCALP: normocephalic FACE & SINUS: normal facial exam NOSE: Normal external nose present MOUTH: Normal oral and palatal mucosa present Eye: COMMON NORMALS: Equal, round and reactive pupils present, EOMs intact bilaterally, conjunctivae normal and no scleral icterus CONJUNCTIVA: Yes conjunctivae normal PUPIL: Yes Equal, round and reactive pupils present Neck/C-Spine: COMMON NORMALS: full ROM, no lymphadenopathy, no JVD and No carotid bruits THYROID: Thyroid normal Lymph: LYMPHATIC: no lymphadenopathy noted Chest: COMMONS NORMALS: normal inspection of the chest Resp: COMMON NORMALS: normal respiratory effort, No retractions, No use of accessory muscles and clear to auscultation bilaterally AUSCULTATION: clear to auscultation bilaterally Cardio: COMMON NORMALS: regular rate, regular rhythm, S1 normal heart sound present, S2 normal heart sound present, No murmurs present (Cardio) and Peripheral pulses 2+ throughout RATE: regular rate RHYTHM: regular rhythm HEART SOUNDS: S1 normal heart sound present and S2 normal heart sound present PERIPHERAL PULSES: Peripheral pulses 2+ throughout GI: COMMON NORMALS: Normal to inspection, nondistended, normoactive bowel sounds present, Soft to palpation and non-tender PALPATION: Yes Soft to palpation : OTHER: Right CVA tenderness Extremity: COMMON NORMALS: normal to inspection, full ROM, capillary refill normal and no pedal edema Neuro: COMMON NORMALS: patient oriented x3, CN's II-XII intact bilaterally, moves all extremities, no focal motor deficits and no sensory deficits noted MENINGEAL SIGNS: Yes no meningeal signs Psych: COMMON NORMALS: mental status grossly normal, Normal thought process present, cooperative and speech normal APPEARANCE: Yes well kempt SPEECH: Yes normal speech THOUGHT PROCESS: Normal thought process present Skin: COMMON NORMALS: no jaundice Data 05/14/23 12:35 05/14/23 12:35 A&P Assessment and plan (1) Acute renal failure: (2) Dehydration: (3) Heat exhaustion: (4) Hyponatremia: (5) Metabolic acidosis: (6) Syncope: (7) Diabetes type I: (8) Hyperlipemia, mixed: (9) Hypotension: Plan Acute renal failure -With metabolic acidosis -With hyponatremia Etiology -Likely secondary to dehydration -We will need to rule out nephrolithiasis as he has right CVA tenderness, history of kidney stones, will need to rule out kidney infection, UTI Plan -Currently blood pressure 110/80 he is alert and oriented x3 -Has received fluid boluses feeling better -CT scan abdomen pelvis without contrast -Continue IV fluids -Low-dose sliding scale -CPK ordered -Lactic acid 1.7 -Pro-Braxton, CRP -If he indeed does have a kidney stone with evidence obstructive uropathy, will have to speak to urology, possible transfer -Full code -Heparin for DVT prophylaxis Attestations Medical Necessity Statement*: Patient requires hospitalization, inpatient, greater than 2 midnights, for dehydration, acute renal failure, metabolic acidosis, heat exhaustion, hypotension, Coding Level of Care Code Acute Code for [facility] Fwd Diagnoses Acute renal failure N17.9 Dehydration E86.0 Heat exhaustion T67.5XXA Hyponatremia E87.1 Metabolic acidosis E87.20 Syncope R55 Diabetes type I E10.9 Hyperlipemia, mixed E78.2 Hypotension I95.9
[2023-05-14 14:52] LABS: Blood Gas Sample Type Arterial; Oxygen Device ROOM AIR
[2023-05-14 15:07] LABS: Troponin 5 2HR 23.67 ng/L (0-15); Troponin 5 2HR Delta -2.33 ABS# (0-10)
[2023-05-14 15:12] LABS: Procalcitonin 0.51 ng/mL (0-0.5); Thyroid Stimulating Hormone 1.32 uIU/mL (0.27-4.20)
[2023-05-14 15:14] LABS: ABG PCO2 40.8 mmHg (35-45); ABG PH Result 7.32 (7.35-7.45); Arterial Blood Gas Hematocrit 44.1 % (42-52); Base Excess ABG -4.8 mmol/L (-2.0-2.0); Blood Gas Operator Identificat AMH; Blood Gas Sample Site Brachial, right; PO2 ABG 72.5 mmHg (80.0-100.0)
[2023-05-14 15:23] LABS: C Reactive Protein 10.2 mg/L (0.0-4.9)
[2023-05-14 15:26] LABS: Creatine Phosphokinase 1716 U/L (39-308)
[2023-05-14] MEDS: heparin 5,000 unit/mL INJ 1 mL 5000 UNIT SUBCUT (16:18)
[2023-05-14] MEDS: pantoprazole 40 mg SDV IVP (16:18)
[2023-05-14] MEDS: sodium chloride 0.9% 1,000 ML 125 ML IV (16:19)
--- NOTE | 2023-05-14 18:11 | ECG_ITS ---
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 Measurements Intervals Index Rate: 62 P: 41 RI: 196 QRS: 1 QRSD: 105 T: 46 QT: 432 QTc: 440 Interpretive Statements SINUS RHYTHM LOW QRS VOLTAGE IN PRECORDIAL LEADS [QRS DEFLECTION < 1.0 mV IN CHEST LEADS] NONSPECIFIC T-WAVE ABNORMALITY Compared to ECG 05/14/2023 14:07:50 T-wave abnormality now present Electronically Signed On 05-14-2023 23:39:49 CDT by Eyad Moore M.D. [id number]
== END 2023-05-14 19:50 | disposition short-term general hospital (02) ==
PROVIDERS: Family Medicine; Emergency Provider Emergency Medicine; PCP Emergency Medicine Emergency Medical Services
DX: Z79.84 Long term (current) use of oral hypoglycemic drugs (principal); Z79.4 Long term (current) use of insulin; E10.9 Type 1 diabetes mellitus without complications; E78.2 Mixed hyperlipidemia; I95.9 Hypotension, unspecified; N17.9 Acute kidney failure, unspecified; N13.8 Other obstructive and reflux uropathy; N20.1 Calculus of ureter; Z87.891 Personal history of nicotine dependence
CPT/HCPCS: 36415; 36600; 51798; 71045; 74176; 80053; 82009; 82550; 82803; 83605; 83690; 83735; 84100; 84145; 84443; 84484; 85025; 85651; 86140; 87040; 93005; 96361; 96372; 96374; 99215; 99285; C9113; J1644; J7030

== ENCOUNTER 2023-08-14 13:16 | Outpatient (CLI) | payer OTHER, SELFPAY ==
[2023-08-14 13:56] LABS: Estmated Average Glucose 126
[2023-08-14 14:04] LABS: Creatinine Urine, Random 153 mg/dL (39-259); Microalbum Creatinine Ratio Ur 7 mg/dL (0-20); Microalbumin Random Urine 1 ug/dL (0-20)
[2023-08-14 14:06] LABS: Alanine Aminotransferase 23 U/L (0-41); Albumin Level 4.3 g/dL (3.5-5.2); Alkaline Phosphatase 86 U/L (40-130); Anion Gap 14.1 (5-19); Aspartate Amino Transferase 15 U/L (0-40); Blood Urea Nitrogen 11 mg/dL (6-20); Calcium 9.3 mg/dL (8.5-10.5); Carbon Dioxide 26 mmol/L (22-29); Chloride 104 mmol/L (98-107); Chol HDL Ratio 5.45 mg/dL (1.0-5.00); Cholesterol 109 mg/dL (0-200); Globulin 2.4 g/dL (1.3-4.6); Glomerular Filtration Rate 89.3 mL/min (90-130); Glucose 165 mg/dL (65-115); HDL Cholesterol 20 mg/dL (60-100); LDL Cholesterol Calculated 36 mg/dL (50-129); Osmolality Calculated 293 mOsm/kg (285-295); Potassium 4.1 mmol/L (3.5-5.1); Sodium 140 mmol/L (136-145); Total Bilirubin 0.2 mg/dL (0.15-1.2); Total Protein 6.7 g/dL (6.6-8.7); Triglycerides 265 mg/dL (0-150)
== END 2023-08-14 13:17 | disposition home or self-care (01) ==
PROVIDERS: PCP Emergency Medicine Emergency Medical Services; Visit Provider Internal Medicine
DX: E10.9 Type 1 diabetes mellitus without complications (principal); E78.2 Mixed hyperlipidemia
CPT/HCPCS: 36415; 80053; 80061; 82044; 83036

== ENCOUNTER → 2023-08-19 10:18 | Outpatient (BNVA) | payer OTHER, SELFPAY | PROVIDERS: PCP Emergency Medicine Emergency Medical Services; Visit Provider Internal Medicine | DX: E10.9 Type 1 diabetes mellitus without complications (principal); E78.2 Mixed hyperlipidemia; Z79.84 Long term (current) use of oral hypoglycemic drugs; Z87.442 Personal history of urinary calculi | CPT/HCPCS: 99214 ==

== ENCOUNTER 2024-02-12 14:08 | Outpatient (CLI) | payer OTHER, SELFPAY ==
[2024-02-12 14:46] LABS: Alanine Aminotransferase 36 U/L (0-41); Albumin Level 4.1 g/dL (3.5-5.2); Anion Gap 13.9 (5-19); Aspartate Amino Transferase 23 U/L (0-40); Blood Urea Nitrogen 9 mg/dL (6-20); Calcium 8.3 mg/dL (8.5-10.5); Carbon Dioxide 27 mmol/L (22-29); Chloride 105 mmol/L (98-107); Cholesterol 108 mg/dL (0-200); Globulin 2.8 g/dL (1.3-4.6); Glomerular Filtration Rate 101.9 mL/min (90-130); Glucose 150 mg/dL (65-115); HDL Cholesterol 23 mg/dL (60-100); LDL Cholesterol Calculated 37 mg/dL (50-129); LDL HDL Ratio 1.61 RATIO (0.00-3.22); Osmolality Calculated 296 mOsm/kg (285-295); Potassium 3.9 mmol/L (3.5-5.1); Sodium 142 mmol/L (136-145); Total Bilirubin 0.3 mg/dL (0.15-1.2); Total Protein 6.9 g/dL (6.6-8.7); Triglycerides 242 mg/dL (0-150)
[2024-02-12 14:47] LABS: Alkaline Phosphatase 94 U/L (40-130)
[2024-02-12 14:48] LABS: Creatinine Urine, Random 322 mg/dL (39-259); Microalbum Creatinine Ratio Ur 9 mg/dL (0-20); Microalbumin Random Urine 3 ug/dL (0-20)
[2024-02-12 14:48] LABS: Estmated Average Glucose 148; Hemoglobin A1C 6.8 % (4.0-6.0)
== END 2024-02-12 14:09 | disposition home or self-care (01) ==
LOC: LAB 14:09
PROVIDERS: PCP Emergency Medicine Emergency Medical Services; Visit Provider Internal Medicine
DX: E10.9 Type 1 diabetes mellitus without complications (principal)
CPT/HCPCS: 80053; 80061; 82044; 83036

== ENCOUNTER → 2024-02-17 10:34 | Outpatient (BNVA) | payer OTHER, SELFPAY | PROVIDERS: PCP Emergency Medicine Emergency Medical Services; Visit Provider Internal Medicine | DX: E10.9 Type 1 diabetes mellitus without complications (principal); E78.2 Mixed hyperlipidemia; Z79.84 Long term (current) use of oral hypoglycemic drugs | CPT/HCPCS: 99214 ==

== ENCOUNTER 2024-07-29 13:46 | Outpatient (CLI) | payer OTHER, SELFPAY ==
[2024-07-29 14:42] LABS: Estmated Average Glucose 154
[2024-07-29 14:52] LABS: Alanine Aminotransferase 30 U/L (0-41); Albumin Level 4.1 g/dL (3.5-5.2); Alkaline Phosphatase 97 U/L (40-130); Anion Gap 13.9 (5-19); Aspartate Amino Transferase 19 U/L (0-40); Blood Urea Nitrogen 8 mg/dL (6-20); Calcium 8.4 mg/dL (8.5-10.5); Carbon Dioxide 26 mmol/L (22-29); Chloride 103 mmol/L (98-107); Chol HDL Ratio 4.62 mg/dL (1.0-5.00); Cholesterol 97 mg/dL (0-200); Glomerular Filtration Rate 101.9 mL/min (90-130); Glucose 242 mg/dL (65-115); HDL Cholesterol 21 mg/dL (60-100); LDL Cholesterol Calculated 22 mg/dL (50-129); LDL HDL Ratio 1.05 RATIO (0.00-3.22); Osmolality Calculated 294 mOsm/kg (285-295); Potassium 3.9 mmol/L (3.5-5.1); Sodium 139 mmol/L (136-145); Total Bilirubin 0.3 mg/dL (0.15-1.2); Total Protein 7.1 g/dL (6.6-8.7); Triglycerides 272 mg/dL (0-150)
[2024-07-29 14:54] LABS: Creatinine Urine, Random 167 mg/dL (39-259); Microalbum Creatinine Ratio Ur 6 mg/dL (0-20); Microalbumin Random Urine 1 ug/dL (0-20)
== END 2024-07-29 13:47 | disposition home or self-care (01) ==
LOC: LAB 13:47
PROVIDERS: PCP Nurse Practitioner Family; Visit Provider Internal Medicine
DX: E10.9 Type 1 diabetes mellitus without complications (principal); E78.2 Mixed hyperlipidemia
CPT/HCPCS: 36415; 80053; 80061; 82044; 83036

== ENCOUNTER → 2024-08-02 08:58 | Outpatient (BNVA) | payer OTHER, SELFPAY | PROVIDERS: PCP Nurse Practitioner Family; Visit Provider Internal Medicine | DX: E10.9 Type 1 diabetes mellitus without complications (principal); E78.2 Mixed hyperlipidemia; Z79.84 Long term (current) use of oral hypoglycemic drugs | CPT/HCPCS: 99214 ==

== ENCOUNTER 2025-01-12 16:26 | Emergency (ER) | payer OTHER, SELFPAY ==
--- NOTE | 2025-01-12 16:32 | XRR_ITS ---
PROCEDURE INFORMATION: Exam: XR Left Foot Exam date and time: 01/12/2025 5:17 PM Age: 54 years old Clinical indication: Pain; Toes; Left; Additional info: Toe pain TECHNIQUE: Imaging protocol: Radiologic exam of the left foot. Views: 3 or more views. COMPARISON: No relevant prior studies available. FINDINGS: Bones/joints: No evidence of acute fracture or subluxation. Tarsometatarsal alignment is maintained. Mild osteoarthritis of the 1st MTP joint.Plantar calcaneal spur. If there is concern for plantar fascial pathology, follow-up outpatient MRI may be helpful. There is pes cavus. Soft tissues: No gross soft tissue abnormality. XR/XR foot LT min 3V* [id number] IMPRESSION: 1. No evidence of acute fracture or subluxation.
[2025-01-12 16:40] VITALS: BP 153/112; PULSE 102; RESP 16; TEMP 36.7; O2SAT 96; BMI 36.5
[2025-01-12 17:36] LABS: Basophils # 0.1 10^3/uL (0.0-0.1); Basophils % 0.3 %; Eosinophils # 0.1 10^3/uL (0.0-0.8); Eosinophils % 0.4 %; Hematocrit 44.6 % (37-53); Lymphocytes # 1.8 10^3/uL (0.8-4.8); Lymphocytes % 11.8 %; Mean Corpuscular Hemoglobin 29.5 pg (27-33); Mean Corpuscular Volume 89.6 fl (82-101); Mean Platelet Volume 10.2 fL (7.4-10.4); Monocytes % 6.8 %; Neutrophils # 12.01 10^3/uL (1.8-7.7); Neutrophils % 80.4 %; Nucleated Red Blood Cells % 0 %; Platelet Count 289 10^3/cmm (157-399); Red Blood Count 4.98 10^6/uL (3.85-5.65); Red Cell Distribution Width 14.3 % (12.1-15.1); White Blood Count 14.95 10^3/uL (3.29-11.43)
[2025-01-12 17:43] LABS: Erythrocyte Sedimentation Rate 13 mm/hr (0-10)
[2025-01-12 17:55] LABS: Alanine Aminotransferase 34 U/L (0-41); Albumin Level 4.5 g/dL (3.5-5.2); Alkaline Phosphatase 96 U/L (40-130); Anion Gap 18.2 (5-19); Aspartate Amino Transferase 20 U/L (0-40); Blood Urea Nitrogen 8 mg/dL (6-20); C Reactive Protein 66.6 mg/L (0.0-4.9); Calcium 9.4 mg/dL (8.5-10.5); Carbon Dioxide 21 mmol/L (22-29); Chloride 103 mmol/L (98-107); Creatinine Clr Calc Pharmacy 129.2268; Globulin 3.1 g/dL (1.3-4.6); Glomerular Filtration Rate 101.5 mL/min (90-130); Glucose 133 mg/dL (65-115); Osmolality Calculated 286 mOsm/kg (285-295); Potassium 4.2 mmol/L (3.5-5.1); Sodium 138 mmol/L (136-145); Total Protein 7.6 g/dL (6.6-8.7)
[2025-01-12 18:00] VITALS: BP 138/92; PULSE 78; O2SAT 96
--- NOTE | 2025-01-12 18:20 | ED_ITS ---
HPI - Extremity Problem 2 General: Chief complaint: Extremity Injury, Lower Stated complaint: left foot big toe pain Time Seen by Provider: 01/12/25 17:20 History of Present Illness: Patient presents to the ER after developing a blood blister on his left big toe yesterday. Patient did pop it but some triple antibiotic ointment on it place and a Band-Aid before going to work. When he got home he went straight to bed. After he got up he took a shower and then looked down his big toe and it was red swollen irritated with purulent drainage. Related Data Home Medications ?Medication ?Instructions ?Recorded ?Confirmed gabapentin 600 mg tablet 600 mg PO BID 07/29/2208/02 levocetirizine 5 mg tablet (Xyzal) 5 mg PO BEDTIME 09/0908/02/24 naproxen 500 mg tablet 500 mg PO BID PRN Pain 07/2908/02/24 omeprazole magnesium 20 mg 20 mg PO BEDTIME 07/29/22 1 tablet,delayed release (Prilosec OTC) tramadol 50 mg tablet (Ultram) 50 mg PO BID 07/29/22 1 Previous Rx's ?Medication ?Instructions ?Recorded atorvastatin 40 mg tablet 40 mg PO DAILY #60 tabs 07/19 12/10 blood sugar diagnostic (Accu-Chek #100 ea 07/30/22 Guide test strips) blood-glucose meter (Accu-Chek #1 ea 07/30/22 Guide Glucose Meter) lancets (Accu-Chek Fastclix Lancet #200 ea 07/30/22 Drum) metformin 500 mg tablet,extended 1,000 mg (2 x 500 mg) PO BID #180 05/14/23 release 24 hr tabs sulfamethoxazole 800 1 tab PO BID #14 tabs mg-trimethoprim 160 mg tablet (Bactrim DS) Allergies Allergy/AdvReac Type Severity Reaction Status Date / Time amoxicillin Allergy Unknown Unknown Verified 08/02/24 07:47 Review of Systems 2 General: Reports: 10 or more systems reviewed and unremarkable except in HPI and below PFSH ED 2 PFSH: Medical History Ureterolithiasis DKA (diabetic ketoacidosis) No pertinent family history Surgical History Hx of appendectomy History of ankle surgery RIGHT History of shoulder surgery BILATERAL Family History Mother Hypertension Social History Smoking and tobacco/nicotine status: never used tobacco/nicotine Alcohol intake: never Substance/Drug Use: never Caregiver/support person: No Lives independently: No Household members: spouse Marital status: Current occupational status: employed Current gender identity: Male Physical Exam 2 Const: COMMON NORMALS: no acute distress, average body habitus, patient oriented x3, no limitations, healthy appearing, alert and well nourished HENMT: COMMON NORMALS: normocephalic, atraumatic, hearing grossly normal bilaterally, external ears normal, Normal external nose present, moist oral mucous membranes and oropharynx normal HEAD & SCALP: normocephalic and atraumatic NOSE: Normal external nose present EXTERNAL EAR: Yes external ears normal Neck/C-Spine: COMMON NORMALS: no JVD Chest: COMMONS NORMALS: normal inspection of the chest and normal palpation of entire chest wall Resp: COMMON NORMALS: normal respiratory effort, No retractions, No use of accessory muscles and clear to auscultation bilaterally AUSCULTATION: clear to auscultation bilaterally Cardio: COMMON NORMALS: no JVD, regular rate, regular rhythm, S1 normal heart sound present, S2 normal heart sound present, No gallops present (Cardio), No clicks present (Cardio), No murmurs present (Cardio) and No rub (Cardio) R ATE: regular rate RHYTHM: regular rhythm HEART SOUNDS: S1 normal heart sound present and S2 normal heart sound present GI: COMMON NORMALS: Normal to inspection, nondistended, normoactive bowel sounds present, Soft to palpation, non-tender, No hepatosplenomegaly present and no masses PALPATION: Yes Soft to palpation and Yes No hepatosplenomegaly present Extremity: NARRATIVE EXTREMITY EXAM: Left great toe red swollen irritated erythematous cellulitic with fluctuant area consistent with abscess that is draining purulent material. Neuro: COMMON NORMALS: patient oriented x3 SENSORIUM/ORIENTATION: Yes alert Course 2 Vital Signs: Vital signs: Vital Signs Temperature 98.0 F 01/12/25 16:40 Pulse Rate 83 01/12/25 18:50 Respiratory Rate 16 01/12/25 18:50 Blood Pressure 152/94 01/12/25 18:50 Pulse Oximetry 96 01/12/25 18:50 Oxygen Delivery Me thod Room Air 01/12/25 18:00 MDM - Extremity (Nontraumatic) Medical Decision Making Blood culture and wound culture was obtained patient is given Bactrim DS patient be discharged home lab work was reviewed as well as x-ray, patient follow-up with PCP in approximately 7 days, Dakin's soak or Epsom salt soak 3 times a day for 15 minutes each. Lab Data 01/12/25 17:25 01/12/25 17:25 Radiology Impressions Foot X-Ray 01/12/25 16:32 IMPRESSION: 1. No evidence of acute fracture or subluxation. Laboratory Results WBC 14.95 10^3/uL (3.29-11.43) H 01/12/25 17: RBC 4.98 10^6/uL (3.85-5.65) 01/12/25 17: Hgb 14.70 g/dL (11.27-16.99) 01/12/25 17: Hct 44.6 % (37-53) 01/12/25 17: MCV 89.6 fl (82-101) 01/12/25 17: MCH 29.5 pg (27-33) 01/12/25 17: MCHC 33.0 g/dL (30-55) 01/12/25 17: RDW 14.3 % (12.1-15.1) 01/12/25 17: Plt Count 289 10^3/cmm (157-399) 01/12/25 17: MPV 10.2 fL (7.4-10.4) 01/12/25 17: Neut % (Auto) 80.4 % 01/12/25 17: Lymph % (Auto) 11.8 % 01/12/25 17:25 [place] % (Auto) 6.8 % 01/12/25 17: Eos % (Auto) 0.4 % 01/12/25 17: Baso % (Auto) 0.3 % 01/12/25 17: Neut # (Auto) 12.01 10^3/uL (1.8-7.7) H 01/12/25 17:25 Lymph # (Auto) 1.8 10^3/uL (0.8-4.8) 01/12/25 17:25 [place] # (Auto) 1.0 10^3/uL (0.2-0.9) H 01/12/25 17:25 Eos # (Auto) 0.1 10^3/uL (0.0-0.8) 01/12/25 17:25 Baso # (Auto) 0.1 10^3/uL (0.0-0.1) 01/12/25 17:25 Nucleated RBC % (auto) 0 % 01/12/25 17: Nucleated RBCs # 0.0 /100WBC 01/12/25 17:25 ESR 13 mm/hr (0-10) H 01/12/25 17:25 Sodium 138 mmol/L (136-145) 01/12/25 17:25 Potassium 4.2 mmol/L (3.5-5.1) 01/12/25 17:25 Chloride 103 mmol/L (98-107) 01/12/25 17:25 Carbon Dioxide 21 mmol/L (22-29) L 01/12/25 17:25 Anion Gap 18.2 (5-19) 01/12/25 17:25 BUN 8 mg/dL (6-20) 01/12/25 17:25 Creatinine 0.8 mg/dL (0.7-1.2) 01/12/25 17:25 GFR Calculation 101.5 mL/min (90-130) 01/12/25 17:25 Glucose 133 mg/dL (65-115) H 01/12/25 17:25 Calculated Osmolality 286 mOsm/kg (285-295) 01/12/25 17:25 Calcium 9.4 mg/dL (8.5-10.5) 01/12/25 17:25 Total Bilirubin 1.0 mg/dL (0.15-1.2) 01/12/25 17:25 AST 20 U/L (0-40) 01/12/25 17:25 ALT 34 U/L (0-41) 01/12/25 17:25 Alkaline Phosphatase 96 U/L (40-130) 01/12/25 17:25 C-Reactive Protein 66.6 mg/L (0.0-4.9) H 01/12/25 17:25 Total Protein 7.6 g/dL (6.6-8.7) 01/12/25 17:25 Albumin 4.5 g/dL (3.5-5.2) 01/12/25 17:25 Globulin 3.1 g/dL (1.3-4.6) 01/12/25 17:25 All radiology interpretation(s) finalized by discharge Discharge Plan Discharge Patient Disposition: Home Clinical Impression: Cellulitis of great toe Qualifiers: Laterality: left Qualified Code(s): L03.032 - Cellulitis of left toe Condition: Stable Prescriptions: New sulfamethoxazole-trimethoprim [Bactrim DS] 800-160 mg tablet 1 tab PO BID Qty: 14 0RF No Action metformin 500 mg tablet extended release 24 hr 1,000 mg PO BID Qty: 180 0RF gabapentin 600 mg Tablet 600 mg PO BID tramadol [Ultram] 50 mg Tablet 50 mg PO BID naproxen 500 mg Tablet 500 mg PO BID PRN (Reason: Pain) omeprazole magnesium [Prilosec OTC] 20 mg Tablet,Delayed Release (Dr/Ec) 20 mg PO BEDTIME levocetirizine [Xyzal] 5 mg Tablet 5 mg PO BEDTIME (DME) blood-glucose meter [Accu-Chek Guide Glucose Meter] Misc See Rx Instructions .Route Qty: 1 0RF Rx Instructions: As directed (DME) Accu-Chek Guide test strips Strip See Rx Instructions .Route Qty: 100 4RF Rx Instructions: As directed (DME) lancets [Accu-Chek Fastclix Lancet Drum] Misc See Rx Instructions .Route Qty: 200 4RF Rx Instructions: As directed atorvastatin 40 mg tablet 40 mg PO DAILY Qty: 60 4RF Discharge Orders: Discharge ED (Routine); Ordered 01/12/25 Ordered By: Jostin Correa Referrals: Yoselin Marcial APRN [Primary Care Provider] - 1 week Patient Instructions: Cellulitis (ED) Activity Restrictions/Additional Instructions: Activity restrictions/additional instructions: Thank you for choosing [facility] for your healthcare needs today. Please realize that you were seen in the emergency department and that we are providing you with an emergency medical screening exam and this may not be a complete and all exclusive of all testing and/or medical workup we may need to determine your element or severity of your illness. It is very important that you follow-up as instructed with your primary care provider or specialist for the additional evaluation and to discuss your medical treatment plan. You may return to the emergency department should you have concerns or if your condition changes or worsens in any way. Print Language: Korean Coding Level of Care Code ED Poultry Pinner for Nadia Chun
[2025-01-12 18:50] VITALS: BP 152/94; PULSE 83; RESP 16; O2SAT 96
[2025-01-12] MEDS: sulfamethoxazole-trimeth DS 160-800 mg Tablet 1 TAB PO (19:01)
== END 2025-01-12 19:01 | disposition home or self-care (01) ==
PROVIDERS: Emergency Medicine; Emergency Provider Emergency Medicine; PCP Nurse Practitioner Family
DX: L03.032 Cellulitis of left toe (principal); Z79.84 Long term (current) use of oral hypoglycemic drugs
CPT/HCPCS: 36415; 73630; 80053; 85025; 85651; 86140; 87040; 87070; 87077; 87186; 99284; J9999

== ENCOUNTER → 2025-02-03 08:14 | Outpatient (BNVA) | payer OTHER, SELFPAY | PROVIDERS: PCP Nurse Practitioner Family; Visit Provider Internal Medicine | DX: E10.9 Type 1 diabetes mellitus without complications (principal); E78.2 Mixed hyperlipidemia; L97.509 Non-pressure chronic ulcer of other part of unspecified foot with unspecified severity | CPT/HCPCS: 99214 ==

== ENCOUNTER → 2025-02-06 09:23 | Outpatient (BNVA) | payer OTHER, SELFPAY | PROVIDERS: PCP Nurse Practitioner Family; Visit Provider Thoracic Surgery (Cardiothoracic Vascular Surgery) | DX: E11.52 Type 2 diabetes mellitus with diabetic peripheral angiopathy with gangrene (principal); E11.621 Type 2 diabetes mellitus with foot ulcer; L97.521 Non-pressure chronic ulcer of other part of left foot limited to breakdown of skin; Z09 Encounter for follow-up examination after completed treatment for conditions other than malignant neoplasm | CPT/HCPCS: 97597; 99203 ==

== ENCOUNTER → 2025-02-07 07:01 | Outpatient (BNVA) | payer OTHER, SELFPAY | PROVIDERS: PCP Nurse Practitioner Family; Visit Provider Podiatrist Foot & Ankle Surgery | DX: E10.621 Type 1 diabetes mellitus with foot ulcer (principal); L97.512 Non-pressure chronic ulcer of other part of right foot with fat layer exposed; L60.3 Nail dystrophy; L84 Corns and callosities; G62.9 Polyneuropathy, unspecified; E10.42 Type 1 diabetes mellitus with diabetic polyneuropathy; Z79.84 Long term (current) use of oral hypoglycemic drugs | CPT/HCPCS: 99204 ==

== ENCOUNTER → 2025-02-13 14:58 | Outpatient (BNVA) | payer OTHER, SELFPAY | PROVIDERS: PCP Nurse Practitioner Family; Visit Provider Thoracic Surgery (Cardiothoracic Vascular Surgery) | DX: Z09 Encounter for follow-up examination after completed treatment for conditions other than malignant neoplasm (principal); Z87.2 Personal history of diseases of the skin and subcutaneous tissue | CPT/HCPCS: 99212; A6213 ==

== ENCOUNTER → 2025-04-11 07:09 | Outpatient (BNVA) | payer OTHER, SELFPAY | PROVIDERS: PCP Nurse Practitioner Family; Visit Provider Podiatrist Foot & Ankle Surgery | DX: E10.49 Type 1 diabetes mellitus with other diabetic neurological complication (principal); L60.3 Nail dystrophy; L84 Corns and callosities; G62.9 Polyneuropathy, unspecified; Z79.84 Long term (current) use of oral hypoglycemic drugs | CPT/HCPCS: 11056; 11721 ==

== ENCOUNTER → 2025-06-22 07:06 | Outpatient (BNVA) | payer OTHER, SELFPAY | PROVIDERS: PCP Nurse Practitioner Family; Visit Provider Podiatrist Foot & Ankle Surgery | DX: E10.42 Type 1 diabetes mellitus with diabetic polyneuropathy (principal); L60.3 Nail dystrophy; L84 Corns and callosities; G62.9 Polyneuropathy, unspecified; Z79.84 Long term (current) use of oral hypoglycemic drugs | CPT/HCPCS: 11056; 11721 ==

== ENCOUNTER → 2025-08-04 08:08 | Outpatient (BNVA) | payer OTHER, SELFPAY | PROVIDERS: PCP Nurse Practitioner Family; Visit Provider Internal Medicine | DX: E10.9 Type 1 diabetes mellitus without complications (principal); E78.2 Mixed hyperlipidemia; L97.509 Non-pressure chronic ulcer of other part of unspecified foot with unspecified severity | CPT/HCPCS: 99214 ==

== ENCOUNTER → 2025-08-31 07:20 | Outpatient (BNVA) | payer OTHER, SELFPAY | PROVIDERS: PCP Nurse Practitioner Family; Visit Provider Podiatrist Foot & Ankle Surgery | DX: E10.42 Type 1 diabetes mellitus with diabetic polyneuropathy (principal); L60.3 Nail dystrophy; L84 Corns and callosities; G62.9 Polyneuropathy, unspecified; E10.9 Type 1 diabetes mellitus without complications; Z79.84 Long term (current) use of oral hypoglycemic drugs | CPT/HCPCS: 11721 ==